=== PATIENT | female | born 2000 | race Caucasian/White ===

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

== ENCOUNTER 2020-01-10 05:55 | Inpatient (IN) | payer BC, SELFPAY ==
[2020-01-10] VITALS (25 sets, daily range): BP systolic 96–152; BP diastolic 56–88; PULSE 102–132; RESP 8–29; TEMP 36.1–38; O2SAT 98–100; BMI 19.8
[2020-01-10 05:44] LABS: Anion Gap 24 (5-15); BUN 16 mg/dL (7-18); BUN/Creat Ratio 16.3 RATIO (10-20); Calcium,Total 8.3 mg/dL (8.5-10.1); Chloride 112 mmol/L (98-107); Creatinine, Serum 0.98 mg/dL (0.55-1.02); EST Glomerular Filtration Rate 76 mL/min (>60); Est Glom Filt Rate - Afr Amer 92 mL/min (>60); Estimated Creatinine Clearance 77.55 ml/min; Glucose 425 mg/dL (74-106); Potassium 3.9 mmol/L (3.5-5.1); Sodium Level 140 mmol/L (136-145)
--- NOTE | 2020-01-10 05:47 | PCM.HP.STD ---
Problem List (1) DKA, type 1 Status: Acute Qualifiers: (2) DM type 1 (diabetes mellitus, type 1) Status: Chronic Qualifiers: History of Present Illness Date of Admission: 01/10/20 Chief Complaint: Hyperglycemia The patient is a 19 year old female patient with a past medical history of type 1 diabetes presents to the emergency room at [facility] with tachycardia, shortness of breath and hyperglycemia. Onset of this began over 1 day ago and is progressively become worse with shortness of breath. There she was found to have a pH of less than 7 with a blood sugar in the 600s with an anion gap of 34 along with ketones positive. [facility] did not have any beds in the ICU available so she was transferred by request [facility]. Upon arrival the patient had received over 2 L of IV fluids, and had begun an insulin drip and her sugar was in the 400s upon arrival with an anion gap of 24. Patient states she is starting to feel better than she did upon initial presentation at the [facility]. She no longer has nausea but does complain of some abdominal pain in the right lower quadrant with deep inspiration making that worse. There was reported as questionable urinary tract infection by ER at [address] and those labs and studies will be repeated here prior to initiating any therapy. The patient will continue the pathway for treatment of DKA here in the intensive care unit. Past Medical History Past Medical History (Chronic Problems): Chronic Problems (Last Reviewed 07/02/17 @ 16:28 by Mayela Swenson) DM type 1 (diabetes mellitus, type 1) (Chronic) Medical History: Medical History (Last Reviewed 07/02/17 @ 16:28 by Mayela Swenson) Diabetes type 1, controlled E10.9 Headache R51 Allergies No Known Allergies Allergy (Verified 11/27/17 22:33) Home Medications: Ambulatory Orders Medication Instructions Recorded Insulin Glargine [Lantus (BKC)] 50 units SC QHS 11/27/17 Insulin Lispro [Humalog KwikPen] 1 - 7 unit SQ LUNCH 11/27/17 Insulin Lispro [Humalog KwikPen] 1 - 9 unit SQ BREAKFAST 11/27/17 Sertraline HCl [Zoloft] 100 mg PO QHS 01/10/20 Surgical History: no surgical history Psychiatric History: No pertinent psych hx 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 Denies: Chills, Fever, Weight Change HEENT: Denies: Head Aches, Sinus Congestion, Sinus Drainage Cardiovascular: Denies: Chest Pain, Palpitations Respiratory: Reports: Shortness of breath at rest. Denies: Cough, Sputum production Gastrointestinal: Reports: Abdominal Pain. Denies: Nausea, Vomiting Genitourinary: Denies: Dysuria Musculoskeletal: Denies: Joint Pain, Joint Tenderness Skin: Denies: Rash, Wounds Neurological: Denies: Numbness, Tingling, Focal weakness Psychiatric: Denies: Anxiety, Depression, Homicidal Ideations, Suicidal Ideations Hematologic/ Lymphatic: Denies: Easy Bruising, Easy Bleeding VTE Information - Inpt Only VTE Present on Admission: No VTE Mechan Device Prophylaxis: None VTE Pharm Prophylaxis ordered?: Yes - Physical Exam Vitals/I&O's: Vital Signs Temp Pulse Resp BP Pulse Ox 96.9 F L 125 H 29 H 130/88 H 99 01/10/20 05:15 01/10/20 05:45 01/10/20 05:45 01/10/20 05:45 01/10/20 05:45 Oxygen Delivery Method Room Air Weight: 119 lb 4.321 oz Body Mass Index (BMI) 19.8 Finger Stick Blood Glucose 249 General: Alert, Oriented x3, Cooperative HEENT: Atraumatic, Normocephalic Neck: Supple Lungs: Clear to auscultation, Normal air movement Cardiovascular: Regular rate, Normal S1, Normal S2, No murmurs, Tachycardic Abdomen: Bowel Sounds Present, Soft, Tender - generalized Extremities: No edema Skin: No rashes Musculoskeletal: No Tenderness to Palpation of Joints or Extremities Neurological: Neuro grossly intact Psych/Mental Status: Normal Affect, Appropriate Laboratory Results 01/10/20 05:15: Sodium 140, Potassium 3.9, Chloride 112 H, Carbon Dioxide 4.0 L*, Anion Gap 24 H, BUN 16, Creatinine 0.98, Estim Creat Clear Calc 77.55, Est GFR (MDRD) Af Amer 92, Est GFR (MDRD) Non-Af 76, BUN/Creatinine Ratio 16.3, Glucose 425 H, Calcium 8.3 L Current Medications Sodium Chloride () 250 mls @ 15 mls/hr IV .[id number] PRN PRN Reason: Saline Flush Sodium Chloride () 250 mls @ 15 mls/hr IV .[id number] PRN PRN Reason: Additional IVPB Infusion Sodium Chloride () 10 - 40 ml IV UD PRN PRN Reason: SALINE FLUSH Assessment/Plan All Active Problems (Last Reviewed 07/02/17 @ 16:28 by Mayela Swenson) DKA, type 1 (Acute) Chronic Problems (Last Reviewed 07/02/17 @ 16:28 by Mayela Swenson) DM type 1 (diabetes mellitus, type 1) (Chronic) Plan 1. Diabetic ketoacidosis?admit patient to intensive care unit, consult aboriginal ceremonial celebrant, initiate DKA protocol. BMP was done upon arrival to our facility. Patient is in stable but serious condition upon arrival. We will also look for causes of DKA including repeating her urinalysis 2. DVT prophylaxis?low molecular weight heparin Inpatient E&M: 22455 Init Hosp L3
[2020-01-10 05:51] LABS: Bedside Glucose 407 mg/dL (70-110)
--- NOTE | 2020-01-10 05:59 | EKG12_ITS ---
Test Reason : DKA Blood Pressure : / mmHG Vent. Rate : 123 BPM Atrial Rate : 123 BPM P-R Int : 152 ms QRS Dur : 072 ms QT Int : 330 ms P-R-T Axes : 076 096 055 degrees QTc Int : 472 ms Sinus tachycardia Right atrial enlargement Septal infarct , age undetermined Abnormal ECG When compared with ECG of 06-JUN-2017 12:46, Septal infarct is now Present Non-specific change in ST segment in Anterior leads Nonspecific T wave abnormality no longer evident in Lateral leads Confirmed by MICHI MARTEL, ARANZA ([id number]), video tape editor MINE COBOS ([id number]) on 01/13/2020 9:11:10 AM Referred By: TD Confirmed By:YING BORDEN MD
[2020-01-10] MEDS: 0.9% Normal Saline 1,000 ML 250 ML IV (06:16)
[2020-01-10 06:45] LABS: Bedside Glucose 452 mg/dL (70-110)
--- NOTE | 2020-01-10 07:03 | PCM.CON.CC ---
Reason for Consult Date of Consultation: 01/10/20 Reason for Consultation: Diabetic ketoacidosis History of Present Illness: The patient is a 19-year-old female, with a history as outlined below, who presented to the medical intensive care unit as a transfer from an outside hospital due to the presence of diabetic ketoacidosis. The patient has a longstanding history of type 1 diabetes under poor control. The patient reports that she was previously being followed by an database tester in [place]. However, she states that she is now in need of finding a new specialist who is more local. At one point in time, the patient was utilizing a continuous insulin infusion pump. However, due to recent insurance changes, the patient was no longer able to afford her pump and had to be transition back to basal and sliding scale coverage. On presentation to the ICU, the patient was noted to be afebrile but was tachycardic and tachypneic. Laboratory evaluation revealed a chloride of 112, serum bicarbonate of 4.0 and anion gap of 24. Glucose was elevated to 425. Hemoglobin A1c was noted to be 13.2. Moderate serum acetone level was noted. The patient was continued on supplemental IV fluid hydration and a continuous insulin infusion. Past Medical History Past Medical History (Chronic Problems): Chronic Problems (Last Reviewed 07/02/17 @ 16:28 by Mayela Swenson) DM type 1 (diabetes mellitus, type 1) (Chronic) Medical History: Medical History (Last Reviewed 07/02/17 @ 16:28 by Mayela Swenson) Diabetes type 1, controlled E10.9 Headache R51 Allergies No Known Allergies Allergy (Verified 11/27/17 22:33) Home Medications: Ambulatory Orders Medication Instructions Recorded Insulin Glargine [Lantus (BKC)] 50 units SC QHS 11/27/17 Insulin Lispro [Humalog KwikPen] 1 - 7 unit SQ LUNCH 11/27/17 Insulin Lispro [Humalog KwikPen] 1 - 9 unit SQ BREAKFAST 11/27/17 Insulin Lispro [Insulin Lispro 1 - 6 unit SQ DINNER 01/10/20 Kwikpen U-100] Sertraline HCl [Zoloft] 100 mg PO QHS 01/10/20 Surgical History: no surgical history Psychiatric History: No pertinent psych hx 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 Denies: Chills, Fever Eyes: Denies: Blurred vision, Double vision HEENT: Denies: Head Aches, Sinus Congestion, Sinus Drainage Cardiovascular: Denies: Chest Pain, Palpitations Respiratory: Denies: Cough, Shortness of breath at rest, Sputum production Gastrointestinal: Reports: Abdominal Pain, Diarrhea. Denies: Nausea, Vomiting Genitourinary: Denies: Dysuria Musculoskeletal: Denies: Joint Pain, Joint Tenderness Skin: Denies: Rash, Wounds Neurological: Denies: Numbness, Tingling, Focal weakness Psychiatric: Denies: Anxiety, Depression, Homicidal Ideations, Suicidal Ideations Hematologic/ Lymphatic: Denies: Easy Bruising, Easy Bleeding Objective: The patient's most recent lab work, culture data and imaging studies have all been personally reviewed. Urine culture is currently pending. - Physical Exam Vitals/I&O's: Vital Signs Temp Pulse Resp BP Pulse Ox 96.9 F L 126 H 23 H 152/85 H 100 01/10/20 05:15 01/10/20 06:30 01/10/20 06:30 01/10/20 06:30 01/10/20 06:30 Oxygen Delivery Method Room Air Weight: 119 lb 4.321 oz Body Mass Index (BMI) 19.8 Finger Stick Blood Glucose 249 Intake and Output for Last 24 Hours 01/08/20 01/09/20 01/10/20 23:59 23:59 23:59 Output Total 400 / 400 Balance -400 / -400 General: Alert, Oriented x3, Cooperative, No apparent distress HEENT: Atraumatic, PERRLA, Normocephalic Oral: No Gingival or Mucosal Lesions/ Ulcerations Neck: Supple, No Nodes, Trachea Midline Lungs: Normal air movement, No rhonchi, No wheeze, No rales Cardiovascular: Normal S1, Normal S2, No murmurs, Tachycardic Abdomen: Bowel Sounds Present, Soft, Non Tender Extremities: No clubbing, No cyanosis, No edema Skin: No breakdown Musculoskeletal: No Tenderness to Palpation of Joints or Extremities, No Muscle Wasting Lymphatic: No Cervical, Supraclavicular, or Inguinal Adenopathy Neurological: Cranial nerves II-XII grossly intact, Neuro grossly intact Psych/Mental Status: Alert and oriented to time, place, person, mood and affect Labs (Last 48 Hours) 01/10/20 01/10/20 01/10/20 05:15 05:15 05:37 Sodium 140 Potassium 3.9 Chloride 112 H Carbon Dioxide 4.0 L* Anion Gap 24 H BUN 16 Creatinine 0.98 Estim Creat Clear Calc 77.55 Est GFR (MDRD) Af Amer 92 Est GFR (MDRD) Non-Af 76 BUN/Creatinine Ratio 16.3 Glucose 425 H Hemoglobin A1c Serum Osmolality Calcium 8.3 L Magnesium 2.0 Acetone Level POC Glucose 407 H 01/10/20 01/10/20 01/10/20 06:15 06:15 06:36 Sodium Potassium Chloride Carbon Dioxide Anion Gap BUN Creatinine Estim Creat Clear Calc Est GFR (MDRD) Af Amer Est GFR (MDRD) Non-Af BUN/Creatinine Ratio Glucose Hemoglobin A1c Pending Serum Osmolality Pending Calcium Magnesium Acetone Level Pending POC Glucose 452 H* Current Medications Dextrose (D50w Syringe) 0 gm IV X1 PRN; Protocol PRN Reason: HYPOGLYCEMIA Dextrose (D50w Syringe) 0 gm IV X1 PRN; Protocol PRN Reason: Hypoglycemia Enoxaparin Sodium (Lovenox) 40 mg SC DAILY BRITNI Glucagon () 1 mg IM .X1 PRN PRN Reason: Hypoglycemia Sodium Chloride () 250 mls @ 15 mls/hr IV .[id number] PRN PRN Reason: Saline Flush Sodium Chloride () 250 mls @ 15 mls/hr IV .[id number] PRN PRN Reason: Additional IVPB Infusion Sodium Chloride () 1,000 mls @ 150 mls/hr IV .[id number] BRITNI Sodium Chloride () 1,000 mls @ 250 mls/hr IV .Q4H [facility] Stop: 01/10/20 09:56 Last Admin: 01/10/20 06:16 Dose: 250 mls/hr Documented by: Sodium Chloride () 1,000 mls @ 175 mls/hr IV .[id number] [facility] Stop: 01/10/20 12:56 Insulin Human Lispro 100 unit/ (Sodium Chloride) 100 mls @ 5.41 mls/hr IV .[id number] [facility]; Protocol Last Admin: 01/10/20 06:38 Dose: 0.13 units/kg/hr, 7 mls/hr Documented by: Sodium Chloride () 10 - 40 ml IV UD PRN PRN Reason: SALINE FLUSH Assessment/Plan RECOMMENDATIONS: 1. Continue supplemental IV fluid hydration with lactated Ringer's. 2. Continue insulin infusion until anion gap has been closed x2. 3. Serial BMP monitoring with aggressive electrolyte repletion, as needed. 4. Patient to remain n.p.o. until anion gap has been closed. 5. Patient to establish care with Dr. Sin of endocrinology following discharge. IMPRESSIONS: 1. Diabetic ketoacidosis Most likely secondary to outpatient noncompliance, given significantly elevated hemoglobin A1c level. The patient is reportedly in need of a new database tester to manage her underlying diabetes mellitus longitudinally. For now, she will be continued on supplemental IV fluid hydration and continuous insulin infusion. Her fluids will be transition from normal saline to lactated Ringer's, given her rising chloride levels. Serial BMP levels will be monitored. Continuous insulin infusion will be utilized until anion gap has been closed x2. Patient to remain n.p.o. for now. Nutrition consultation has been placed for diabetic education. Case management/social work to assist with setting the patient up with Dr. Sin following discharge. This note was generated with [employer] dictation software. It may contain incorrect words, spelling, and punctuation that were not noted in checking the note before signing. Inpatient E&M: 42528 Init Hosp L3
[2020-01-10 07:38] LABS: Osmolality, Serum 329 mOsm/KG (275-295)
--- NOTE | 2020-01-10 07:43 | PCM.PN.BLA ---
Progress Note Patient is a 19-year-old lady with history of diabetes mellitus type 1 presenting with DKA. Admitted to the intensive care unit where patient is currently being managed per protocol with aggressive IV fluid resuscitation correction of electrolytes as well as administration of insulin with subsequent monitoring of electrolyte Lewis, her initial assessment including history and physical, diagnostic data as well as management orders reviewed will follow. STROKE Vital Signs/Narrative: Vital Signs Temp Pulse Resp BP BP Pulse Ox 01/10/20 06:30 126 H 23 H 152/85 H 100 01/10/20 06:00 121 H 26 H 120/65 100 01/10/20 05:45 125 H 29 H 130/88 H 99 01/10/20 05:30 128 H 24 H 126/83 H 99 01/10/20 05:15 96.9 F L 126 H 19 H 127/82 H 100 01/10/20 05:13 125 H
[2020-01-10 07:55] LABS: Bedside Glucose 385 mg/dL (70-110)
[2020-01-10 07:56] LABS: Color, Urine Yellow (Yellow); Glucose, Dipstick 1000 mg/dl (Normal); Leukocyte Esterase-Dipstick 25 /ul (Negative); Nitrite-Dipstick Negative (Negative); Occult Blood-Urine 250 /ul (Negative); Protein-Dipstick 30 mg/dl (Negative); Urine Bilirubin Dipstick Negative (Negative); Urine Clarity Sl. Cloudy (Clear); Urine Urobilinogen Normal (Normal)
[2020-01-10 07:58] LABS: Ketone-Dipstick 150 mg/dl (Negative)
[2020-01-10 08:00] LABS: Bacteria RARE /hpf (None Seen); Mucous, Urine RARE /hpf (<or=2+); Red Blood Cells-Urine 0-5 SEEN /hpf (0-5); Squamous Epithelial Cells - UA 0-5 SEEN /hpf (5-10); White Blood Cells 0-5 SEEN /hpf (0-5)
[2020-01-10 08:26] LABS: Hemoglobin A1c 13.2 % (3.8-5.6)
[2020-01-10 08:45] LABS: Bedside Glucose 410 mg/dL (70-110)
[2020-01-10] MEDS: Lactated Ringers 1,000 ML 999 ML IV (09:00)
[2020-01-10] MEDS: Enoxaparin 40 MG/0.4 ML Syringe SC (09:14)
[2020-01-10 09:43] LABS: Anion Gap 19 (5-15); BUN 15 mg/dL (7-18); BUN/Creat Ratio 20.1 RATIO (10-20); Calcium,Total 7.8 mg/dL (8.5-10.1); Chloride 121 mmol/L (98-107); Creatinine, Serum 0.75 mg/dL (0.55-1.02); EST Glomerular Filtration Rate 104 mL/min (>60); Est Glom Filt Rate - Afr Amer 126 mL/min (>60); Estimated Creatinine Clearance 101.34 ml/min; Glucose 386 mg/dL (74-106); Potassium 4.1 mmol/L (3.5-5.1); Sodium Level 145 mmol/L (136-145)
[2020-01-10 09:55] LABS: Bedside Glucose 324 mg/dL (70-110)
[2020-01-10] MEDS: Lactated Ringers 1,000 ML 250 ML IV (10:01)
[2020-01-10 11:00] LABS: Bedside Glucose 272 mg/dL (70-110)
--- NOTE | 2020-01-10 11:15 | CASEMGMT ---
TERRENCE AMATO Face to Face with patient for initial transition planning/care coordination assessment. TERRENCE AMATO introduced self and role at [facility]. Patient lying in bed, alert and oriented. Patient willing to participate in assessment and is able to answer all questions appropriately. Care providers, pharmacy, and demographics verified. Patient wishes to discharge home, denies need for home health at this time. Patient states she has no further needs or concerns at this time. CM to follow for discharge planning needs that may arise. PCP: [facility] Specialists: patient wanting to get established with Dr. Sin, senior marketing associate. TERRENCE AMATO called and made appt for 01/18/20 1500 [facility]erred [facility]acy: [facility] Insurance: [employer] Source Prescription Benefit: yes Living Will/HPOA: none LNOK: parents Living Arrangements: Patient lives with parents in a house. Patient is independent and able to ambulate stairs. Transportation: self/parents DME/HHC: Patient has glucometer, testing supplies, and insulin at home. Patient to get established with endocrinology. Disposition Plan: Patient to discharge home with family support and follow-up plans in place. Analilia SOTELO, RN, CM
[2020-01-10 12:06] LABS: Bedside Glucose 219 mg/dL (70-110)
[2020-01-10 13:10] LABS: Bedside Glucose 230 mg/dL (70-110)
[2020-01-10 13:42] LABS: Anion Gap 15 (5-15); BUN 12 mg/dL (7-18); BUN/Creat Ratio 16.6 RATIO (10-20); Chloride 120 mmol/L (98-107); Creatinine, Serum 0.72 mg/dL (0.55-1.02); EST Glomerular Filtration Rate 108 mL/min (>60); Est Glom Filt Rate - Afr Amer 131 mL/min (>60); Estimated Creatinine Clearance 105.56 ml/min; Glucose 269 mg/dL (74-106); Potassium 3.1 mmol/L (3.5-5.1); Sodium Level 144 mmol/L (136-145)
[2020-01-10 14:11] LABS: Bedside Glucose 207 mg/dL (70-110)
--- NOTE | 2020-01-10 14:20 | NURSING ---
report given to Criss OCAMPO. Criss OCAMPO assuming care of patient at 1934
[2020-01-10] MEDS: Potassium Chloride 10mEq/100mL 10 MEQ/100 ML IV.SOLN. 100 MEQ IV BOLUS ×4 (14:28→18:31)
[2020-01-10 15:16] LABS: Bedside Glucose 252 mg/dL (70-110)
[2020-01-10 16:15] LABS: Bedside Glucose 243 mg/dL (70-110)
[2020-01-10 17:16] LABS: Bedside Glucose 227 mg/dL (70-110)
[2020-01-10] MEDS: 0.9% Saline Lock 10 ML Syringe IV ×2 (17:19→19:37)
[2020-01-10 17:53] LABS: Anion Gap 10 (5-15); BUN 12 mg/dL (7-18); BUN/Creat Ratio 18.5 RATIO (10-20); Calcium,Total 7.7 mg/dL (8.5-10.1); Chloride 118 mmol/L (98-107); Creatinine, Serum 0.65 mg/dL (0.55-1.02); EST Glomerular Filtration Rate 122 mL/min (>60); Est Glom Filt Rate - Afr Amer 148 mL/min (>60); Estimated Creatinine Clearance 116.93 ml/min; Glucose 249 mg/dL (74-106); Potassium 3.5 mmol/L (3.5-5.1); Sodium Level 140 mmol/L (136-145)
[2020-01-10 18:16] LABS: Bedside Glucose 213 mg/dL (70-110)
[2020-01-10] MEDS: Ondansetron 4 MG/2 ML Vial IV (19:37)
[2020-01-10 22:00] LABS: Anion Gap 8 (5-15); BUN 14 mg/dL (7-18); Calcium,Total 8.1 mg/dL (8.5-10.1); Chloride 117 mmol/L (98-107); Creatinine, Serum 0.58 mg/dL (0.55-1.02); EST Glomerular Filtration Rate 139 mL/min (>60); Est Glom Filt Rate - Afr Amer 168 mL/min (>60); Estimated Creatinine Clearance 131.04 ml/min; Glucose 124 mg/dL (74-106); Potassium 3.7 mmol/L (3.5-5.1); Sodium Level 141 mmol/L (136-145)
[2020-01-10 23:05] LABS: Bedside Glucose 75 mg/dL (70-110)
[2020-01-11] VITALS (9 sets, daily range): BP systolic 96–122; BP diastolic 57–75; PULSE 94–108; RESP 14–19; TEMP 36.7–37.1; O2SAT 97–100
[2020-01-11 01:37] LABS: Anion Gap 9 (5-15); BUN 13 mg/dL (7-18); BUN/Creat Ratio 20.4 RATIO (10-20); Calcium,Total 8.1 mg/dL (8.5-10.1); Chloride 112 mmol/L (98-107); Creatinine, Serum 0.64 mg/dL (0.55-1.02); EST Glomerular Filtration Rate 125 mL/min (>60); Est Glom Filt Rate - Afr Amer 151 mL/min (>60); Estimated Creatinine Clearance 118.75 ml/min; Glucose 207 mg/dL (74-106); Potassium 2.9 mmol/L (3.5-5.1); Sodium Level 139 mmol/L (136-145)
[2020-01-11] MEDS: Potassium Chloride 10mEq/100mL 10 MEQ/100 ML IV.SOLN. 100 MEQ IV BOLUS ×8 (02:09→14:04)
[2020-01-11 06:08] LABS: Absolute Lymphocyte Count 1.23 X10^3/uL (0.83-4.51); Absolute Neutrophil Count 8.5 X10^3/uL (2.0-7.7); Basophil# 0.02 X10^3/uL; Basophil% 0.2 % (0-1); Eosinophil# 0.06 X10^3/uL; Eosinophils% 0.5 % (0-5); Hemoglobin 12.8 g/dL (12.0-15.0); Lymphocyte # 1.23 X10^3/ul (4.0); Lymphocyte % 11.2 % (19-41); Mean Corp Hgb Conc 33.7 g/dL (32-36); Mean Corpuscular Hgb 29.3 pg (27.0-32.0); Monocyte# 1.13 X10^3/uL; Monocyte% 10.3 % (0-10); NRBC Flagged by Analyzer 0 % (0-5); Neutrophil # 8.48 X10^3/uL (2.7-7.7); Neutrophil % 77.1 % (47-70); Platelet Count 216 K/mm3 (150-450); RBC Distribution Width CV 13.2 % (11.6-14.6); RBC Distribution Width SD 41.7 fl (35.1-43.9); Red Blood Count 4.37 M/mm3 (4.2-5.4)
[2020-01-11 06:22] LABS: Anion Gap 8 (5-15); BUN 12 mg/dL (7-18); Calcium,Total 8.1 mg/dL (8.5-10.1); Chloride 110 mmol/L (98-107); Creatinine, Serum 0.55 mg/dL (0.55-1.02); EST Glomerular Filtration Rate 149 mL/min (>60); Est Glom Filt Rate - Afr Amer 181 mL/min (>60); Estimated Creatinine Clearance 138.95 ml/min; Glucose 192 mg/dL (74-106); Magnesium 1.5 mg/dL (1.6-2.6); Phosphorus 1.2 mg/dL (2.5-4.9); Potassium 3.1 mmol/L (3.5-5.1); Sodium Level 137 mmol/L (136-145)
[2020-01-11] MEDS: Insulin Lispro 100 UNIT/ML INSULN.PEN SC ×7 (06:51→20:56)
[2020-01-11 07:05] LABS: Bedside Glucose 174 mg/dL (70-110)
--- NOTE | 2020-01-11 07:11 | PN_ITS ---
Subjective: The patient was seen and examined at the bedside this morning. Events from the last 24 hours have been reviewed. The patient is currently afebrile, hemodynamically stable and maintaining appropriate oxygen saturations on room air. The patient's anion gap remains closed. She was transitioned off of her continuous insulin infusion over to basal and sliding scale insulin yesterday. Potassium is low this morning at 3.1. Objective: The patient's most recent lab work, culture data and imaging studies have all been personally reviewed. General: Alert, Cooperative HEENT: Atraumatic, Normocephalic Oral: No Gingival or Mucosal Lesions/ Ulcerations Neck: Supple, No Nodes, Trachea Midline Lungs: Normal air movement, No rhonchi, No wheeze, No rales Cardiovascular: Regular rate, Regular Rhythm Abdomen: Bowel Sounds Present, Soft, Non Tender Extremities: No clubbing, No cyanosis, No edema Skin: No breakdown Musculoskeletal: No Tenderness to Palpation of Joints or Extremities, No Muscle Wasting Lymphatic: No Cervical, Supraclavicular, or Inguinal Adenopathy Neurological: Cranial nerves II-XII grossly intact, Neuro grossly intact Psych/Mental Status: Flat Affect Vital Signs Temp Pulse Resp BP Pulse Ox 98.4 F 106 H 19 H 122/75 H 99 01/11/20 01:00 01/11/20 04:00 01/11/20 04:00 01/11/20 04:00 01/11/20 04:00 Oxygen Delivery Method Room Air Weight: 119 lb 14.903 oz Body Mass Index (BMI) 19.8 Finger Stick Blood Glucose 213 Intake and Output for Last 24 Hours 01/09/20 01/10/20 01/11/20 23:59 23:59 23:59 Intake Total 4471.23 / 4471.23 822 / 822 Output Total 3300 / 3300 700 / 700 Balance 1171.23 / 1171.23 122 / 122 Labs (Last 48 Hours) 01/10/20 01/10/20 01/10/20 05:15 05:15 05:37 WBC RBC Hgb Hct MCV MCH MCHC RDW Std Deviation RDW Coeff of Santi Plt Count MPV Immature Gran % (Auto) Neut % (Auto) Lymph % (Auto) [place] % (Auto) Eos % (Auto) Baso % (Auto) Absolute Neuts (auto) Absolute Lymphs (auto) Nucleated RBC % Sodium 140 Potassium 3.9 Chloride 112 H Carbon Dioxide 4.0 L* Anion Gap 24 H BUN 16 Creatinine 0.98 Estim Creat Clear Calc 77.55 Est GFR (MDRD) Af Amer 92 Est GFR (MDRD) Non-Af 76 BUN/Creatinine Ratio 16.3 Glucose 425 H Hemoglobin A1c Serum Osmolality Calcium 8.3 L Phosphorus Magnesium 2.0 Urine Color Urine Clarity Urine pH Ur Specific [place] Urine Protein Urine Glucose (UA) Urine Ketones Urine Occult Blood Urine Nitrite Urine Bilirubin Urine Urobilinogen Ur Leukocyte Esterase Urine RBC Urine WBC Ur Squamous Epith Cells Urine Bacteria Urine Mucus Acetone Level POC Glucose 407 H 01/10/20 01/10/20 01/10/20 06:00 06:15 06:15 WBC RBC Hgb Hct MCV MCH MCHC RDW Std Deviation RDW Coeff of Santi Plt Count MPV Immature Gran % (Auto) Neut % (Auto) Lymph % (Auto) [place] % (Auto) Eos % (Auto) Baso % (Auto) Absolute Neuts (auto) Absolute Lymphs (auto) Nucleated RBC % Sodium Pending Potassium Pending Chloride Pending Carbon Dioxide Pending Anion Gap Pending BUN Pending Creatinine Pending Estim Creat Clear Calc Est GFR (MDRD) Af Amer Pending Est GFR (MDRD) Non-Af Pending BUN/Creatinine Ratio Pending Glucose Pending Hemoglobin A1c 13.2 H Serum Osmolality 329 H Calcium Pending Phosphorus Magnesium Urine Color Urine Clarity Urine pH Ur Specific [place] Urine Protein Urine Glucose (UA) Urine Ketones Urine Occult Blood Urine Nitrite Urine Bilirubin Urine Urobilinogen Ur Leukocyte Esterase Urine RBC Urine WBC Ur Squamous Epith Cells Urine Bacteria Urine Mucus Acetone Level MODERATE H POC Glucose 01/10/20 01/10/20 01/10/20 06:36 07:25 07:49 WBC RBC Hgb Hct MCV MCH MCHC RDW Std Deviation RDW Coeff of Santi Plt Count MPV Immature Gran % (Auto) Neut % (Auto) Lymph % (Auto) [place] % (Auto) Eos % (Auto) Baso % (Auto) Absolute Neuts (auto) Absolute Lymphs (auto) Nucleated RBC % Sodium Potassium Chloride Carbon Dioxide Anion Gap BUN Creatinine Estim Creat Clear Calc Est GFR (MDRD) Af Amer Est GFR (MDRD) Non-Af BUN/Creatinine Ratio Glucose Hemoglobin A1c Serum Osmolality Calcium Phosphorus Magnesium Urine Color Yellow Urine Clarity Sl. Cloudy Urine pH 5.0 Ur Specific [place] 1.020 Urine Protein 30 H Urine Glucose (UA) 1000 H Urine Ketones 150 H Urine Occult Blood 250 H Urine Nitrite Negative Urine Bilirubin Negative Urine Urobilinogen Normal Ur Leukocyte Esterase 25 H Urine RBC 0-5 SEEN Urine WBC 0-5 SEEN Ur Squamous Epith Cells 0-5 SEEN Urine Bacteria RARE Urine Mucus RARE Acetone Level POC Glucose 452 H* 385 H 01/10/20 01/10/20 01/10/20 08:39 09:05 09:51 WBC RBC Hgb Hct MCV MCH MCHC RDW Std Deviation RDW Coeff of Santi Plt Count MPV Immature Gran % (Auto) Neut % (Auto) Lymph % (Auto) [place] % (Auto) Eos % (Auto) Baso % (Auto) Absolute Neuts (auto) Absolute Lymphs (auto) Nucleated RBC % Sodium 145 Potassium 4.1 Chloride 121 H Carbon Dioxide 5.0 L* Anion Gap 19 H BUN 15 Creatinine 0.75 Estim Creat Clear Calc 101.34 Est GFR (MDRD) Af Amer 126 Est GFR (MDRD) Non-Af 104 BUN/Creatinine Ratio 20.1 H Glucose 386 H Hemoglobin A1c Serum Osmolality Calcium 7.8 L Phosphorus Magnesium Urine Color Urine Clarity Urine pH Ur Specific [place] Urine Protein Urine Glucose (UA) Urine Ketones Urine Occult Blood Urine Nitrite Urine Bilirubin Urine Urobilinogen Ur Leukocyte Esterase Urine RBC Urine WBC Ur Squamous Epith Cells Urine Bacteria Urine Mucus Acetone Level POC Glucose 410 H 324 H 01/10/20 01/10/20 01/10/20 10:55 11:59 12:59 WBC RBC Hgb Hct MCV MCH MCHC RDW Std Deviation RDW Coeff of Santi Plt Count MPV Immature Gran % (Auto) Neut % (Auto) Lymph % (Auto) [place] % (Auto) Eos % (Auto) Baso % (Auto) Absolute Neuts (auto) Absolute Lymphs (auto) Nucleated RBC % Sodium Potassium Chloride Carbon Dioxide Anion Gap BUN Creatinine Estim Creat Clear Calc Est GFR (MDRD) Af Amer Est GFR (MDRD) Non-Af BUN/Creatinine Ratio Glucose Hemoglobin A1c Serum Osmolality Calcium Phosphorus Magnesium Urine Color Urine Clarity Urine pH Ur Specific [place] Urine Protein Urine Glucose (UA) Urine Ketones Urine Occult Blood Urine Nitrite Urine Bilirubin Urine Urobilinogen Ur Leukocyte Esterase Urine RBC Urine WBC Ur Squamous Epith Cells Urine Bacteria Urine Mucus Acetone Level POC Glucose 272 H 219 H 230 H 01/10/20 01/10/20 01/10/20 13:00 14:03 15:08 WBC RBC Hgb Hct MCV MCH MCHC RDW Std Deviation RDW Coeff of Santi Plt Count MPV Immature Gran % (Auto) Neut % (Auto) Lymph % (Auto) [place] % (Auto) Eos % (Auto) Baso % (Auto) Absolute Neuts (auto) Absolute Lymphs (auto) Nucleated RBC % Sodium 144 Potassium 3.1 L Chloride 120 H Carbon Dioxide 9.0 L* Anion Gap 15 BUN 12 Creatinine 0.72 Estim Creat Clear Calc 105.56 Est GFR (MDRD) Af Amer 131 Est GFR (MDRD) Non-Af 108 BUN/Creatinine Ratio 16.6 Glucose 269 H Hemoglobin A1c Serum Osmolality Calcium 8.0 L Phosphorus Magnesium Urine Color Urine Clarity Urine pH Ur Specific [place] Urine Protein Urine Glucose (UA) Urine Ketones Urine Occult Blood Urine Nitrite Urine Bilirubin Urine Urobilinogen Ur Leukocyte Esterase Urine RBC Urine WBC Ur Squamous Epith Cells Urine Bacteria Urine Mucus Acetone Level POC Glucose 207 H 252 H 01/10/20 01/10/20 01/10/20 16:05 17:00 17:10 WBC RBC Hgb Hct MCV MCH MCHC RDW Std Deviation RDW Coeff of Santi Plt Count MPV Immature Gran % (Auto) Neut % (Auto) Lymph % (Auto) [place] % (Auto) Eos % (Auto) Baso % (Auto) Absolute Neuts (auto) Absolute Lymphs (auto) Nucleated RBC % Sodium 140 Potassium 3.5 Chloride 118 H Carbon Dioxide 12.0 L Anion Gap 10 BUN 12 Creatinine 0.65 Estim Creat Clear Calc 116.93 Est GFR (MDRD) Af Amer 148 Est GFR (MDRD) Non-Af 122 BUN/Creatinine Ratio 18.5 Glucose 249 H Hemoglobin A1c Serum Osmolality Calcium 7.7 L Phosphorus Magnesium Urine Color Urine Clarity Urine pH Ur Specific [place] Urine Protein Urine Glucose (UA) Urine Ketones Urine Occult Blood Urine Nitrite Urine Bilirubin Urine Urobilinogen Ur Leukocyte Esterase Urine RBC Urine WBC Ur Squamous Epith Cells Urine Bacteria Urine Mucus Acetone Level POC Glucose 243 H 227 H 01/10/20 01/10/20 01/10/20 18:09 21:00 23:00 WBC RBC Hgb Hct MCV MCH MCHC RDW Std Deviation RDW Coeff of Santi Plt Count MPV Immature Gran % (Auto) Neut % (Auto) Lymph % (Auto) [place] % (Auto) Eos % (Auto) Baso % (Auto) Absolute Neuts (auto) Absolute Lymphs (auto) Nucleated RBC % Sodium 141 Potassium 3.7 Chloride 117 H Carbon Dioxide 16.0 L Anion Gap 8 BUN 14 Creatinine 0.58 Estim Creat Clear Calc 131.04 Est GFR (MDRD) Af Amer 168 Est GFR (MDRD) Non-Af 139 BUN/Creatinine Ratio 24.0 H Glucose 124 H Hemoglobin A1c Serum Osmolality Calcium 8.1 L Phosphorus Magnesium Urine Color Urine Clarity Urine pH Ur Specific [place] Urine Protein Urine Glucose (UA) Urine Ketones Urine Occult Blood Urine Nitrite Urine Bilirubin Urine Urobilinogen Ur Leukocyte Esterase Urine RBC Urine WBC Ur Squamous Epith Cells Urine Bacteria Urine Mucus Acetone Level POC Glucose 213 H 75 01/11/20 01/11/20 01/11/20 01:15 06:00 06:00 WBC 11.0 RBC 4.37 Hgb 12.8 Hct 38.0 MCV 87.0 MCH 29.3 MCHC 33.7 RDW Std Deviation 41.7 RDW Coeff of Santi 13.2 Plt Count 216 MPV 9.0 Immature Gran % (Auto) 0.700 Neut % (Auto) 77.1 H Lymph % (Auto) 11.2 L [place] % (Auto) 10.3 H Eos % (Auto) 0.5 Baso % (Auto) 0.2 Absolute Neuts (auto) 8.5 H Absolute Lymphs (auto) 1.23 Nucleated RBC % 0 Sodium 139 137 Potassium 2.9 L 3.1 L Chloride 112 H 110 H Carbon Dioxide 18.0 L 19.0 L Anion Gap 9 8 BUN 13 12 Creatinine 0.64 0.55 Estim Creat Clear Calc 118.75 138.95 Est GFR (MDRD) Af Amer 151 181 Est GFR (MDRD) Non-Af 125 149 BUN/Creatinine Ratio 20.4 H 22.0 H Glucose 207 H 192 H Hemoglobin A1c Serum Osmolality Calcium 8.1 L 8.1 L Phosphorus 1.2 L Magnesium 1.5 L Urine Color Urine Clarity Urine pH Ur Specific [place] Urine Protein Urine Glucose (UA) Urine Ketones Urine Occult Blood Urine Nitrite Urine Bilirubin Urine Urobilinogen Ur Leukocyte Esterase Urine RBC Urine WBC Ur Squamous Epith Cells Urine Bacteria Urine Mucus Acetone Level POC Glucose 01/11/20 06:50 WBC RBC Hgb Hct MCV MCH MCHC RDW Std Deviation RDW Coeff of Santi Plt Count MPV Immature Gran % (Auto) Neut % (Auto) Lymph % (Auto) [place] % (Auto) Eos % (Auto) Baso % (Auto) Absolute Neuts (auto) Absolute Lymphs (auto) Nucleated RBC % Sodium Potassium Chloride Carbon Dioxide Anion Gap BUN Creatinine Estim Creat Clear Calc Est GFR (MDRD) Af Amer Est GFR (MDRD) Non-Af BUN/Creatinine Ratio Glucose Hemoglobin A1c Serum Osmolality Calcium Phosphorus Magnesium Urine Color Urine Clarity Urine pH Ur Specific [place] Urine Protein Urine Glucose (UA) Urine Ketones Urine Occult Blood Urine Nitrite Urine Bilirubin Urine Urobilinogen Ur Leukocyte Esterase Urine RBC Urine WBC Ur Squamous Epith Cells Urine Bacteria Urine Mucus Acetone Level POC Glucose 174 H Medical Necessity - Tobacco Use Smoking Status: Never smoker Assessment/Plan All Active Problems (Last Reviewed 07/02/17 @ 16:28 by Mayela Swenson) DKA, type 1 (Acute) RECOMMENDATIONS: 1. Continue basal and sliding scale insulin coverage. 2. Aggressive electrolyte repletion. 3. Encourage incentive spirometer use while in bed. 4. Patient to establish care with Dr. Sin of endocrinology following discharge. 5. Will sign off from a critical care perspective. IMPRESSIONS: 1. Diabetic ketoacidosis Resolved. Most likely secondary to outpatient noncompliance, given significantly elevated hemoglobin A1c level. The patient is reportedly in need of a new log grader to manage her underlying diabetes mellitus longitudinally. The patient's DKA resolved following IV fluid resuscitation and continuous insulin infusion. Agree with continuing basal insulin and sliding scale coverage. Diabetic education to be provided. The patient will need to be scheduled with Dr. Sin of endocrinology upon discharge from the hospital for follow-up. 2. Hypokalemia/hypophosphatemia/hypomagnesemia Aggressive electrolyte repletion as ordered. Recheck levels in the morning. This note was generated with [employer] dictation software. It may contain incorrect words, spelling, and punctuation that were not noted in checking the note before signing. Inpatient E&M: 07246 Subs Hosp L2
--- NOTE | 2020-01-11 07:17 | PN_ITS ---
Reason for Visit: DKA Subjective: Patient is a 19-year-old lady with history of diabetes mellitus type 1 presenting with DKA. Admitted to the intensive care unit where patient is currently being managed per protocol with aggressive IV fluid resuscitation correction of electrolytes as well as administration of insulin with subsequent monitoring of electrolyte Objective: GENERAL: cooperative HEENT: Atraumatic; EYES; Anicteric, Normal Conjunctiva NECK; supple, normal thyroid, RESPIRATORY: Diminished to auscultation CARDIOVASCULAR: Regular S1 S2, GI: soft, normoactive bowel sounds, : No Renal angle tenderness; EXTREMITIES: No edema, no clubbing, MUSCULOSKELETAL: no muscle waisting NEURO: Awake; no lateralizing signs. SKIN: No Rash PSYCH; Flat affect Vitals/I&O's: Vital Signs Temp Pulse Resp BP Pulse Ox 98.4 F 106 H 19 H 122/75 H 99 01/11/20 01:00 01/11/20 04:00 01/11/20 04:00 01/11/20 04:00 01/11/20 04:00 Oxygen Delivery Method Room Air Weight: 54.4 kg Body Mass Index (BMI) 19.8 Finger Stick Blood Glucose 213 Intake and Output for Last 24 Hours 01/09/20 01/10/20 01/11/20 23:59 23:59 23:59 Intake Total 4471.23 / 4471.23 822 / 822 Output Total 3300 / 3300 700 / 700 Balance 1171.23 / 1171.23 122 / 122 Laboratory Results 01/10/20 06:00: Sodium Pending, Potassium Pending, Chloride Pending, Carbon Dioxide Pending, Anion Gap Pending, BUN Pending, Creatinine Pending, Est GFR (MDRD) Af Amer Pending, Est GFR (MDRD) Non-Af Pending, BUN/Creatinine Ratio Pending, Glucose Pending, Calcium Pending 01/10/20 06:15: Hemoglobin A1c 13.2 H 01/10/20 06:15: Serum Osmolality 329 H 01/10/20 07:25: Urine Color Yellow, Urine Clarity Sl. Cloudy, Urine pH 5.0, Ur Specific [place] 1.020, Urine Protein 30 H, Urine Glucose (UA) 1000 H, Urine Ketones 150 H, Urine Occult Blood 250 H, Urine Nitrite Negative, Urine Bilirubin Negative, Urine Urobilinogen Normal, Ur Leukocyte Esterase 25 H, Urine RBC 0-5 SEEN, Urine WBC 0-5 SEEN, Ur Squamous Epith Cells 0-5 SEEN, Urine Bacteria RARE, Urine Mucus RARE 01/10/20 07:49: POC Glucose 385 H 01/10/20 08:39: POC Glucose 410 H 01/10/20 09:05: Sodium 145, Potassium 4.1, Chloride 121 H, Carbon Dioxide 5.0 L* , Anion Gap 19 H, BUN 15, Creatinine 0.75, Estim Creat Clear Calc 101.34, Est GFR (MDRD) Af Amer 126, Est GFR (MDRD) Non-Af 104, BUN/Creatinine Ratio 20.1 H, Glucose 386 H, Calcium 7.8 L 01/10/20 09:51: POC Glucose 324 H 01/10/20 10:55: POC Glucose 272 H 01/10/20 11:59: POC Glucose 219 H 01/10/20 12:59: POC Glucose 230 H 01/10/20 13:00: Sodium 144, Potassium 3.1 L, Chloride 120 H, Carbon Dioxide 9.0 L*, Anion Gap 15, BUN 12, Creatinine 0.72, Estim Creat Clear Calc 105.56, Est GFR (MDRD) Af Amer 131, Est GFR (MDRD) Non-Af 108, BUN/Creatinine Ratio 16.6, Glucose 269 H, Calcium 8.0 L 01/10/20 14:03: POC Glucose 207 H 01/10/20 15:08: POC Glucose 252 H 01/10/20 16:05: POC Glucose 243 H 01/10/20 17:00: Sodium 140, Potassium 3.5, Chloride 118 H, Carbon Dioxide 12.0 L , Anion Gap 10, BUN 12, Creatinine 0.65, Estim Creat Clear Calc 116.93, Est GFR (MDRD) Af Amer 148, Est GFR (MDRD) Non-Af 122, BUN/Creatinine Ratio 18.5, G lucose 249 H, Calcium 7.7 L 01/10/20 17:10: POC Glucose 227 H 01/10/20 18:09: POC Glucose 213 H 01/10/20 21:00: Sodium 141, Potassium 3.7, Chloride 117 H, Carbon Dioxide 16.0 L , Anion Gap 8, BUN 14, Creatinine 0.58, Estim Creat Clear Calc 131.04, Est GFR (MDRD) Af Amer 168, Est GFR (MDRD) Non-Af 139, BUN/Creatinine Ratio 24.0 H, Glucose 124 H, Calcium 8.1 L 01/10/20 23:00: POC Glucose 75 01/11/20 01:15: Sodium 139, Potassium 2.9 L, Chloride 112 H, Carbon Dioxide 18.0 L, Anion Gap 9, BUN 13, Creatinine 0.64, Estim Creat Clear Calc 118.75, Est GFR (MDRD) Af Amer 151, Est GFR (MDRD) Non-Af 125, BUN/Creatinine Ratio 20.4 H, Glucose 207 H, Calcium 8.1 L 01/11/20 06:00: WBC 11.0, RBC 4.37, Hgb 12.8, Hct 38.0, MCV 87.0, MCH 29.3, MCHC 33.7, RDW Std Deviation 41.7, RDW Coeff of Santi 13.2, Plt Count 216, MPV 9.0, Immature Gran % (Auto) 0.700, Neut % (Auto) 77.1 H, Lymph % (Auto) 11.2 L, [place] % (Auto) 10.3 H, Eos % (Auto) 0.5, Baso % (Auto) 0.2, Absolute Neuts (auto) 8.5 H, Absolute Lymphs (auto) 1.23, Nucleated RBC % 0 01/11/20 06:00: Sodium 137, Potassium 3.1 L, Chloride 110 H, Carbon Dioxide 19.0 L, Anion Gap 8, BUN 12, Creatinine 0.55, Estim Creat Clear Calc 138.95, Est GFR (MDRD) Af Amer 181, Est GFR (MDRD) Non-Af 149, BUN/Creatinine Ratio 22.0 H, Glucose 192 H, Calcium 8.1 L, Phosphorus 1.2 L, Magnesium 1.5 L 01/11/20 06:50: POC Glucose 174 H Current Medications Dextrose (D50w Syringe) 0 gm IV X1 PRN; Protocol PRN Reason: HYPOGLYCEMIA Dextrose (D50w Syringe) 0 gm IV X1 PRN; Protocol PRN Reason: Hypoglycemia Enoxaparin Sodium (Lovenox) 40 mg SC DAILY BRITNI Last Admin: 01/10/20 09:14 Dose: 40 mg Documented by: Glucagon () 1 mg IM .X1 PRN PRN Reason: Hypoglycemia Sodium Chloride () 250 mls @ 15 mls/hr IV .[id number] PRN PRN Reason: Saline Flush Last Admin: 01/11/20 02:10 Dose: 30 mls/hr Documented by: Sodium Chloride () 250 mls @ 15 mls/hr IV .[id number] PRN PRN Reason: Additional IVPB Infusion Potassium Chloride () 10 meq in 100 mls @ 100 mls/hr IV BOLUS Q1H [facility] Stop: 01/11/20 11:29 Magnesium Sulfate 2 gm/ Sodium (Chloride) 104 mls @ 52 mls/hr IV X1 ONE Stop: 01/11/20 09:15 Insulin Glargine (Lantus ([facility])) 25 units SC X1 ONE Stop: 01/11/20 08:01 Insulin Human Lispro (Humalog Kwikpen ([facility])) 5 unit SC TIDAC BRITNI Last Admin: 01/11/20 06:51 Dose: 5 units Documented by: Insulin Human Lispro (Humalog Kwikpen ([facility])) 0 unit SC TIDAC [facility]; Protocol Last Admin: 01/11/20 06:52 Dose: 2 units Documented by: Magnesium Oxide (Mag-Ox 400) 400 mg PO DAILYCM [facility] Nutritional Formula (Lactose Free) (Glucerna Shake) 120 ml PO 4X/DAY [facility] Last Admin: 01/10/20 21:48 Dose: Not Given Documented by: Ondansetron HCl (Zofran) 4 mg IV Q6H PRN PRN PRN Reason: nausea,emesis Last Admin: 01/10/20 19:37 Dose: 4 mg Documented by: Potassium Chloride (K-Dur) 20 meq PO BIDCM [facility] Potassium Chloride (K-Dur) 40 meq PO X1 ONE Stop: 01/11/20 07:17 Promethazine HCl (Phenergan) 6.25 mg IV Q4H PRN PRN PRN Reason: NAUSEA/VOMITING Sodium Chloride () 10 - 40 ml IV UD PRN PRN Reason: SALINE FLUSH Last Admin: 01/10/20 19:37 Dose: 20 ml Documented by: STROKE Vital Signs/Narrative: Vital Signs Pulse Resp BP Pulse Ox 01/11/20 04:00 106 H 19 H 122/75 H 99 01/11/20 03:58 101 H Medical Necessity - Tobacco Use Smoking Status: Never smoker Assessment/Plan All Active Problems (Last Reviewed 07/02/17 @ 16:28 by Mayela Swenson) DKA, type 1 (Acute) Patient is a 19-year-old lady with history of diabetes mellitus type 1 presenting with DKA. Admitted to the intensive care unit where patient is c urrently being managed per protocol with aggressive IV fluid resuscitation correction of electrolytes as well as administration of insulin with subsequent monitoring of electrolyte 1. Diabetic ketoacidosis ?Patient was admitted to the intensive care unit managed with aggressive IV fluid resuscitation correction of electrolyte abnormalities as well as administration of insulin. Patient DKA did resolve was transferred from the ICU to regular nursing floor with plans to observe patient for 1 additional day prior to discharge 2. Hypokalemia ?Corrected per protocol 3. DVT prophylaxis -low risk did encourage early ambulation Inpatient E&M: [id number] Subs Hosp L2
[2020-01-11] MEDS: Ondansetron 4 MG/2 ML Vial IV (09:07)
[2020-01-11 09:36] LABS: Anion Gap 7 (5-15); BUN 11 mg/dL (7-18); BUN/Creat Ratio 20.9 RATIO (10-20); Calcium,Total 8.2 mg/dL (8.5-10.1); Chloride 111 mmol/L (98-107); Creatinine, Serum 0.53 mg/dL (0.55-1.02); EST Glomerular Filtration Rate 156 mL/min (>60); Est Glom Filt Rate - Afr Amer 188 mL/min (>60); Glucose 130 mg/dL (74-106); Potassium 2.7 mmol/L (3.5-5.1); Sodium Level 138 mmol/L (136-145)
[2020-01-11] MEDS: Magnesium Oxide 400 MG Tablet PO (09:50)
[2020-01-11] MEDS: Enoxaparin 40 MG/0.4 ML Syringe SC (09:58)
[2020-01-11 11:56] LABS: Bedside Glucose 242 mg/dL (70-110)
[2020-01-11 17:05] LABS: Bedside Glucose 224 mg/dL (70-110)
[2020-01-11] MEDS: Acetaminophen 325 MG Tablet 650 MG PO (17:42)
[2020-01-11] MEDS: Glucerna Shake 120 ML LIQUID PO (19:54)
[2020-01-11 20:16] LABS: Bedside Glucose 334 mg/dL (70-110)
[2020-01-12 02:11] VITALS: BP 107/68; PULSE 100; RESP 16; TEMP 36.6; O2SAT 100
[2020-01-12 06:43] LABS: Anion Gap 7 (5-15); BUN 5 mg/dL (7-18); BUN/Creat Ratio 11.5 RATIO (10-20); Calcium,Total 7.8 mg/dL (8.5-10.1); Chloride 105 mmol/L (98-107); Creatinine, Serum 0.43 mg/dL (0.55-1.02); EST Glomerular Filtration Rate 195 mL/min (>60); Est Glom Filt Rate - Afr Amer 236 mL/min (>60); Estimated Creatinine Clearance 177.73 ml/min; Glucose 395 mg/dL (74-106); Phosphorus 1.2 mg/dL (2.5-4.9); Potassium 3.6 mmol/L (3.5-5.1); Sodium Level 137 mmol/L (136-145)
[2020-01-12 08:10] VITALS: BP 102/70; PULSE 90; RESP 16; TEMP 36.5; O2SAT 100
[2020-01-12] MEDS: 0.9% Saline Lock 10 ML Syringe IV (08:14)
[2020-01-12] MEDS: Ondansetron 4 MG/2 ML Vial IV (08:14)
[2020-01-12] MEDS: Enoxaparin 40 MG/0.4 ML Syringe SC (08:20)
[2020-01-12] MEDS: Insulin Lispro 100 UNIT/ML INSULN.PEN SC ×4 (08:20→11:56)
[2020-01-12] MEDS: Magnesium Oxide 400 MG Tablet PO (08:21)
[2020-01-12 08:25] LABS: Bedside Glucose 401 mg/dL (70-110)
[2020-01-12] MEDS: Glucerna Shake 120 ML LIQUID PO (08:25)
--- NOTE | 2020-01-12 10:00 | PCM.DC ---
You will use the following diet at home:: Calorie/Carbohydrate Controlled (specify 1200, 1400, etc) - 1800 Your food should be the consistency of: Regular Discharge Activity: Return to Normal Activity Allergies/Adverse Reactions: Allergies No Known Allergies Allergy (Verified 11/27/17 22:33) Medications to take at Discharge Insulin Glargine [Lantus SoloStar Pen] 50 units SC QHS 11/27/17 Insulin Lispro [Humalog KwikPen] 1 - 7 unit SQ LUNCH 11/27/17 Insulin Lispro [Humalog KwikPen] 1 - 9 unit SQ BREAKFAST 11/27/17 Insulin Lispro [Insulin Lispro Kwikpen U-100] 1 - 6 unit SQ DINNER 01/10/20 Sertraline HCl [Zoloft] 100 mg PO QHS 01/10/20 Sodium,Potassium Phosphates [Phos-Nak Packet] 1 ea PO BID #60 powd.pack 01/12/20 The following prescriptions were given: Sodium,Potassium Phosphates [Phos-Nak Packet] 1 ea PO BID #60 powd.pack Transmission Status: Pending to [id number] Primary Care Physician: Maurilio Alcala MD [Primary Care Provider] - Please follow up with your Primary Care Physician in: 1 week Test Results: Test results from this visit will be discussed in further detail at your follow-up appointment, if applicable. Please Follow Up With: Jacob Sin MD When: Thursday Proposed Discharge Date: 01/12/20
--- NOTE | 2020-01-12 10:09 | DS.PCM_ITS ---
Discharge Date and Diagnosis Date of Admission: 01/10/20 Date of Discharge: 01/12/20 - Primary Discharge Diagnosis Acute Problems: Diabetic ketoacidosis Hypokalemia Hypophosphatemia - Secondary Discharge Diagnosis Chronic Problems: Chronic Problems (Last Reviewed 07/02/17 @ 16:28 by Mayela Swenson) DM type 1 (diabetes mellitus, type 1) (Chronic) Hospital Course and Treatment Operations: None Summary of Care Provided: Patient is a 19-year-old lady with history of diabetes mellitus type 1 presenting with DKA. Admitted to the intensive care unit where patient is curr ently being managed per protocol with aggressive IV fluid resuscitation correction of electrolytes as well as administration of insulin with subsequent monitoring of electrolyte 1. Diabetic ketoacidosis ?Patient was admitted to the intensive care unit managed with aggressive IV fluid resuscitation correction of electrolyte abnormalities as well as administration of insulin. Patient DKA did resolve was transferred from the ICU to regular nursing floor with plans to observe patient for 1 additional day prior to discharge 2. Hypokalemia ?Corrected per protocol 3. Hypophosphatemia ?Corrected per protocol prescription written on discharge 4. DVT prophylaxis -low risk did encourage early ambulation Objective: GENERAL: cooperative HEENT: Atraumatic; EYES; Anicteric, Normal Conjunctiva NECK; supple, normal thyroid, RESPIRATORY: Diminished to auscultation CARDIOVASCULAR: Regular S1 S2, GI: soft, normoactive bowel sounds, : No Renal angle tenderness; EXTREMITIES: No edema, no clubbing, MUSCULOSKELETAL: no muscle waisting NEURO: Awake; no lateralizing signs. SKIN: No Rash PSYCH; Flat affect - Physical Exam Vitals/I&O's: Vital Signs Temp Pulse Resp BP Pulse Ox 97.7 F L 90 16 102/70 100 01/12/20 08:10 01/12/20 08:10 01/12/20 08:10 01/12/20 08:10 01/12/20 08:10 Oxygen Delivery Method Room Air Weight: 54.2 kg Body Mass Index (BMI) 19.8 Finger Stick Blood Glucose 213 Intake and Output for Last 24 Hours 01/10/20 01/11/20 01/12/20 23:59 23:59 23:59 Intake Total 4471.23 / 4471.23 2626 / 2626 Output Total 3300 / 3300 700 / 700 Balance 1171.23 / 1171.23 1926 / 192 Microbiology Past 72 Hours 01/10/20 07:25 Urine, Clean Catch Urine Culture - Preliminary Mixed Gram Positive Organisms Yeast Like Organism Laboratory Results 01/11/20 11:47: POC Glucose 242 H 01/11/20 16:38: POC Glucose 224 H 01/11/20 19:54: POC Glucose 334 H 01/12/20 05:40: Sodium 137, Potassium 3.6, Chloride 105, Carbon Dioxide 25.0, Anion Gap 7, BUN 5 L, Creatinine 0.43 L, Estim Creat Clear Calc 177.73, Est GFR (MDRD) Af Amer 236, Est GFR (MDRD) Non-Af 195, BUN/Creatinine Ratio 11.5, Glucose 395 H, Calcium 7.8 L, Phosphorus 1.2 L, Magnesium 2.0 01/12/20 08:19: POC Glucose 401 H Current Medications Acetaminophen (Tylenol) 650 mg PO Q6H PRN PRN PRN Reason: Pain Score 1-10/10 Last Admin: 01/11/20 17:42 Dose: 650 mg Documented by: Dextrose (D50w Syringe) 0 gm IV X1 PRN; Protocol PRN Reason: Hypoglycemia Enoxaparin Sodium (Lovenox) 40 mg SC DAILY [facility] Last Admin: 01/12/20 08:20 Dose: 40 mg Documented by: Glucagon () 1 mg IM .X1 PRN PRN Reason: Hypoglycemia Sodium Chloride () 250 mls @ 15 mls/hr IV .[id number] PRN PRN Reason: Saline Flush Last Infusion: 01/11/20 15:24 Dose: Infused Documented by: Sodium Chloride () 250 mls @ 15 mls/hr IV .[id number] PRN PRN Reason: Additional IVPB Infusion Insulin Human Lispro (Humalog Kwikpen (Bkc)) 5 unit SC TIDAC [facility] Last Admin: 01/12/20 08:20 Dose: 5 units Documented by: Insulin Human Lispro (Humalog Kwikpen (Bkc)) 0 unit SC ACHS [facility]; Protocol Last Admin: 01/12/20 08:21 Dose: 10 units Documented by: Magnesium Oxide (Mag-Ox 400) 400 mg PO DAILYCM [facility] Last Admin: 01/12/20 08:21 Dose: 400 mg Documented by: Nutritional Formula (Lactose Free) (Glucerna Shake) 120 ml PO 4X/DAY [facility] Last Admin: 01/12/20 08:25 Dose: 120 ml Documented by: Ondansetron HCl (Zofran) 4 mg IV Q6H PRN PRN PRN Reason: nausea,emesis Last Admin: 01/12/20 08:14 Dose: 4 mg Documented by: Potassium Chloride (K-Dur) 20 meq PO BIDCM [facility] Last Admin: 01/12/20 08:21 Dose: 20 meq Documented by: Potassium Phos/Sodium Phos (Neutra-Phos Packet) 1 packet PO TID [facility] Promethazine HCl (Phenergan) 6.25 mg IV Q4H PRN PRN PRN Reason: NAUSEA/VOMITING Sodium Chloride () 10 - 40 ml IV UD PRN PRN Reason: SALINE FLUSH Last Admin: 01/12/20 08:14 Dose: 10 ml Documented by: Discharge Diet: 1800 Calorie Control Diet Discharge Activity: Return to Normal Activity Home Medications: Medications to take at Discharge Insulin Glargine [Lantus SoloStar Pen] 50 units SC QHS 11/27/17 Insulin Lispro [Humalog KwikPen] 1 - 7 unit SQ LUNCH 11/27/17 Insulin Lispro [Humalog KwikPen] 1 - 9 unit SQ BREAKFAST 11/27/17 Insulin Lispro [Insulin Lispro Kwikpen U-100] 1 - 6 unit SQ DINNER 01/10/20 Sertraline HCl [Zoloft] 100 mg PO QHS 01/10/20 Sodium,Potassium Phosphates [Phos-Nak Packet] 1 ea PO BID #60 powd.pack 01/12/20 Following Prescrptions Were Given to Patient: Sodium,Potassium Phosphates [Phos-Nak Packet] 1 ea PO BID #60 powd.pack Transmission Status: Pending to [facility] Primary Care Physician: Maurilio Alcala MD [Primary Care Provider] - Please follow up with your Primary Care Physician in: 1 week Please Follow Up With: Jacob Sin MD When: Thursday Disposition: Home Minutes spent on discharge:: 35 Patient Condition:: Stable Medical Necessity - Tobacco Use Smoking Status: Never smoker Meaningful Use Info Meaningful Use Diagnoses (Choose all that apply): None applicable Inpatient E&M: 09003 [facility]
[2020-01-12 11:16] VITALS: O2SAT 100
[2020-01-12 11:55] VITALS: BP 106/64; PULSE 108; RESP 16; TEMP 36.7; O2SAT 99
[2020-01-12 12:46] LABS: Bedside Glucose 449 mg/dL (70-110)
--- NOTE | 2020-01-12 15:06 | PHA.DC.MC ---
Pharmacy Service has performed discharge medication reconciliation and counseling for this patient. 1. SODIUM/POTASSIUM PHOSPHATE 1 PACKET PO BID The patient's discharge medication list was reviewed for discrepancies and discrepancies were resolved. Home Medications Insulin Glargine [Lantus SoloStar Pen] 50 units SC QHS 11/27/17 Insulin Lispro [Humalog KwikPen] 1 - 7 unit SQ LUNCH 11/27/17 Insulin Lispro [Humalog KwikPen] 1 - 9 unit SQ BREAKFAST 11/27/17 Insulin Lispro [Insulin Lispro Kwikpen U-100] 1 - 6 unit SQ DINNER 01/10/20 Sertraline HCl [Zoloft] 100 mg PO QHS 01/10/20 Sodium,Potassium Phosphates [Phos-Nak Packet] 1 ea PO BID #60 powd.pack 01/12/20 The patient was counseled on the following discharge medications and changes in medications for homegoing were reviewed. The Reason for Use, instructions for use, and potential side effects were reviewed for all new medications. The patient's questions regarding all of their medications were answered. The patient was able to verbally demonstrate an understanding of their discharge medications. Patient counseled by pharmacy tech, Al
== END 2020-01-12 12:55 | disposition home or self-care (01) | DRG 639 ==
LOC: ICU 01-11 04:56 → MS3 01-11 07:20
PROVIDERS: Family Medicine; Admitting Provider Family Medicine; PCP Family Medicine; Visit Provider Internal Medicine
DX: E10.10 Type 1 diabetes mellitus with ketoacidosis without coma (principal); Z91.19 Patient's noncompliance with other medical treatment and regimen; E87.6 Hypokalemia; E83.42 Hypomagnesemia; E83.39 Other disorders of phosphorus metabolism; Z79.4 Long term (current) use of insulin; Z79.899 Other long term (current) drug therapy
CPT/HCPCS: 36415; 80048; 81001; 82009; 82962; 83036; 83735; 83930; 84100; 85025; 87086; 87088; 93005; 97802; J7030; J7050; J7120; A4216; J2405

== ENCOUNTER → 2020-02-09 12:31 | Outpatient (CLI) | payer BC, SELFPAY ==
[2020-01-10 05:11] VITALS: BMI 19.8
--- NOTE | 2020-02-09 12:32 | US_ITS ---
STUDY: ULTRASOUND BREAST - LEFT REASON FOR EXAM: Female, 19 years old. Palpable lump left breast. TECHNIQUE: Axial and longitudinal images of the LEFT breast were performed with a high resolution ultrasound transducer. # OF IMAGES: 25 COMPARISON: None. FINDINGS: LEFT Breast: The upper inner quadrant of the breast was examined by ultrasound. There is heterogeneously fibroglandular tissue. No sonographic abnormality is seen. US/Breast Limited Unilateral IMPRESSION: No sonographic abnormality is seen. ASSESSMENT CATEGORY: BIRADS Category 1: Negative. A letter regarding these results will be sent to the patient by the facility within 30 days. Electronically Signed: Sony Cowart, at 13:03 EDT , Service support ,
== END ==
PROVIDERS: PCP Family Medicine; Referring Provider Internal Medicine Endocrinology, Diabetes & Metabolism; Visit Provider Internal Medicine Endocrinology, Diabetes & Metabolism
DX: N63.20 Unspecified lump in the left breast, unspecified quadrant (principal)
CPT/HCPCS: 76642

== ENCOUNTER 2020-11-16 02:09 | Observation (INO) | payer BC, SELFPAY ==
[2020-08-02 15:05] VITALS: BMI 22.1
[2020-11-16] VITALS (15 sets, daily range): BP systolic 102–125; BP diastolic 57–85; PULSE 92–116; RESP 13–18; TEMP 36.6–36.9; O2SAT 100; BMI 19.7
--- NOTE | 2020-11-16 06:04 | HP.PCM.HOS_ITS ---
HPI - General General Date of Admission: 11/16/20 Chief Complaint: Hyperglycemia, N/V, fatigue, malaise. HPI Narrative The patient is a 19 y/o F w/ PMHx: Diabetes mellitus type I, Anxiety and Depression who presents to the [facility] as direct admission from [facility] on 11/16/20 with history of significant increased fatigue, malaise, generalized muscle weakness, decreased urine output as well as nausea and emesis with no recent fevers or chills worsening over the last 24 hours with history of significant ice cream intake over the last 48 hours secondary to significant heat and lack of air conditioning in an effort to cool her self down per her report. She also notes that she did not take insulin in response to her hyperglycemia following intake of these sugar items. She notes she had been doing well prior to this. She does state however she did have loose stools 1 week prior but this is since resolved. Work-up in the outside facility included: VS: Initial T 36.7, HR 129, RR 20, 100% on RA, BP 105/76-->1 am VS HR 126, 16 RR 100% on RA 107/56. LA: 1.6 CBC: WBC 10.9, Hgb 15.9, Plts 302 without shift CMP: Na 132, K 3.5, Bicarb 14, AG 25, BUN/Cr 16/0.72 Ma.43 UA: 2+ ketones, 3+ glucose, poor sample COVID negative Medications: 1L NS, insulin drip-->requested additional 1L NS be administered. Upon presentation to [facility] she noted feeling improved, but reports having nausea prior to transition to [facility]. She was given food at the outside facility ED while on insulin. [facility] Medical History (Updated 11/16/20 @ 06:[address] Nikole Watts MD) Anxiety and depression Diabetes type 1, controlled Headache Home Medications sertraline 100 mg PO QHS 01/10/20 [History Last Taken 01/08/20] potassium, sodium phosphates 1 ea PO BID #60 powd.pack 01/12/20 [Rx Last Taken Unknown] cholecalciferol (vitamin D3) 1,250 mcg (50,000 unit) capsule 1,250 mcg PO QWEEK #4 cap 01/18/20 [Rx Last Taken Unknown] amoxicillin 875 mg-potassium clavulanate 125 mg tablet 1 tab PO BID #14 tab 01/26/20 [Rx Last Taken Unknown] Accu-Chek Guide test strips #150 ea NS 08/02/20 [Rx Last Taken Unknown] FreeStyle Randell 14 Day Sensor #2 ea NS 08/02/20 [Rx Last Taken Unknown] insulin glargine 100 unit/mL (3 mL) subcutaneous pen 40 unit SUBCUT QHS #15 ml 08/02/20 [Rx Last Taken Unknown] insulin lispro 100 unit/mL subcutaneous pen 20 unit SC TID #18 ml 08/02/20 [Rx Last Taken Unknown] Allergy/AdvReac Type Severity Reaction Status Date / Time No Known Allergies Allergy Verified 08/02/20 15:13 Family History (Updated 11/16/20 @ 06:[address] Nikole Watts MD) Father Diabetes Heart disease PAF Mother Migraines Surgical History (Updated 11/16/20 @ 06:[address] Nikole Watts MD) H/O wisdom tooth extraction Social History (Updated 11/16/20 @ 06:[address] Nikole Watts MD) household members: family do you think of yourself as: lesbian/mckeon/homosexual Smoking Status: Never smoker second hand exposure: No alcohol intake: never substance use type: does not use ROS ROS Narrative Admission Review of Systems: CONSTITUTIONAL: No weight loss, fever, chills, + weakness or fatigue. HEENT: Eyes: No visual loss, blurred vision, double vision or yellow sclerae. Ears, Nose, Throat: No hearing loss, sneezing, congestion, runny nose or sore throat. SKIN: No rash or itching, lesions, wounds. CARDIOVASCULAR: No chest pain, chest pressure or chest discomfort, palpitations, edema, orthopnea, syncopal events. RESPIRATORY: No shortness of breath, cough or sputum, wheezing, hemoptysis. GASTROINTESTINAL: + anorexia, nausea, vomiting, No diarrhea, abdominal pain, melena, BRBPR. GENITOURINARY: No dysuria, frequency, urgency or retention. NEUROLOGICAL: + headache, No dizziness, syncope, paralysis, ataxia, numbness or tingling in the extremities, focal weakness, change in bowel or bladder control, seizure. MUSCULOSKELETAL: + muscle, back pain, joint pain or stiffness. HEMATOLOGIC: No anemia, bleeding or bruising. LYMPHATICS: No enlarged nodes. No history of splenectomy. PSYCHIATRIC: No history of depression or anxiety. ENDOCRINOLOGIC: + Hyperglycemia. No polyuria or polydipsia, actually reported decreased UOP. No reports of sweating, cold or heat intolerance. ALLERGIES: No history of asthma, hives, eczema or rhinitis. Physical Exam Narrative Physical Examination: General: awake, alert, oriented x 3 and cooperative, seated upright in the ICU bed in no apparent distress, notes feeling improved since initial presentation outside ED. Skin: normal color, turgor, no icterus, cyanosis. HEENT: AT/NC, EOMI, PERRLA, mildly dry MM, no carotid bruits or JVD noted. Lungs: CTA bilaterally, appropriate effort, no rales, ronchi or wheezing. Heart: Mildly tachycardic with regular rhythm; no gallop, rub audible. Abdomen: soft, thin habitus, NTTP, ND, mildly hyperactive BS, no HSM. Extremities: no cyanosis, clubbing, or edema. Neurological: patient awake, alert, oriented as noted, cognitive function intact; pupils equally reactive to light and accommodation, cranial nerves II- XII grossly normal, moving all 4 extremities, no focal deficits, strength improved, mild global decrease secondary to acute complaints. Psychiatric: affect appears fatigued otherwise normal, no acute evidence of depressive or anxiety feelings. Lab / Micro Data Result Diagrams: 11/16/20 06:15 11/16/20 06:15 Assessment & Plan Assessment/Plan (1) DKA, type 1: QUALIFIERS: Diabetes mellitus complication detail: without coma Qualified Code(s): E10.10 - Type 1 diabetes mellitus with ketoacidosis without coma PLAN: The patient is a 19 y/o F w/ PMHx: Diabetes mellitus type I, Anxiety and Depression who presents to the [facility] as direct admission from [facility] on 11/16/20 with history of significant increased fatigue, malaise, generalized m uscle weakness, decreased urine output as well as nausea and emesis with no recent fevers or chills worsening over the last 24 hours with history of significant ice cream intake over the last 48 hours. 1. DKA w/ Diabetes mellitus type I: Patient administered 2 L normal saline in the ED at outside facility and started on an insulin drip. Will admit to the ICU, continue on insulin drip, check serial K+, glucose w/ IVF changes pending these levels, serial chemistry, obtain mag, phos daily w/ repletion as needed, transition to home SC regimen when gap closed w/ overlap on drip, nutrition consultation for education and teaching especially given presentation secondary to significant poor diet choices and failure to self administer insulin therapy, Hemoglobin A1c requested. 2. Hypokalemia: Admission K+ 3.5, magnesium level 1.43 which will be supplemented, supplementation will be given per DKA protocol, repeat BMP serially as noted above. 3. Anxiety and depression: Patient reports that she took her self off sertraline approximately 2 months prior secondary to medication refill needs and felt as though it was not doing anything. Recommended follow-up with her primary care physician to review different options. 4. DVT prophylaxis: SCDs, Lovenox. Visit Charges OBSV E&M: 14141 Initial observation care L3
[2020-11-16 06:25] LABS: Absolute Lymphocyte Count 2.19 X10^3/uL (0.83-4.51); Absolute Neutrophil Count 6.5 X10^3/uL (2.0-7.7); Basophil# 0.04 X10^3/uL; Basophil% 0.4 % (0-1); Eosinophil# 0.06 X10^3/uL; Eosinophils% 0.6 % (0-5); Hematocrit 41.3 % (37-47); Lymphocyte # 2.19 X10^3/ul (0.83-4.51); Lymphocyte % 22.6 % (19-41); Mean Corp Hgb Conc 33.9 g/dL (32-36); Mean Corpuscular Hgb 29.8 pg (27.0-32.0); Mean Corpuscular Volume 87.9 fL (81-99); Monocyte# 0.82 X10^3/uL; Monocyte% 8.5 % (0-10); NRBC Flagged by Analyzer 0 % (0-5); Neutrophil # 6.52 X10^3/uL (2.7-7.7); Neutrophil % 67.2 % (47-70); Platelet Count 272 K/mm3 (150-450); RBC Distribution Width CV 12.3 % (11.6-14.6); RBC Distribution Width SD 39.5 fl (35.1-43.9); White Blood Count 9.7 K/mm3 (4.4-11.0)
[2020-11-16 06:38] LABS: Anion Gap 9 (5-15); BUN 11 mg/dL (7-18); BUN/Creat Ratio 17.1 RATIO (10-20); Calcium,Total 8.1 mg/dL (8.5-10.1); Chloride 105 mmol/L (98-107); Creatinine, Serum 0.64 mg/dL (0.55-1.02); EST Glomerular Filtration Rate 123 mL/min (>60); Est Glom Filt Rate - Afr Amer 148 mL/min (>60); Estimated Creatinine Clearance 121.47 ml/min; Glucose 286 mg/dL (74-106); Magnesium 1.3 mg/dL (1.6-2.6); Potassium 3.6 mmol/L (3.5-5.1); Sodium Level 135 mmol/L (136-145)
[2020-11-16] MEDS: 0.9% Normal Saline 1,000 ML 999 ML IV (06:45)
[2020-11-16] MEDS: Insulin Lispro 100 UNIT/ML INSULN.PEN SC ×3 (07:54→16:53)
[2020-11-16 08:11] LABS: Bedside Glucose 272 mg/dL (70-110)
[2020-11-16 08:11] LABS: Bedside Glucose 317 mg/dL (70-110)
[2020-11-16] MEDS: 0.9% Normal Saline 1,000 ML 125 ML IV ×3 (08:30→22:13)
[2020-11-16 08:36] LABS: Phosphorus 2.8 mg/dL (2.5-4.9)
--- NOTE | 2020-11-16 08:47 | PN.HOSP_ITS ---
Hospitalist Note 19-year-old female with type 1 diabetes mellitus diagnosed when she was 10 years old is directly admitted in ICU after transfer from [place] ER for management of DKA. Magnesium is low, hypomagnesemia. Mild hypokalemia Patient missed doses of insulin at night probably reason for DKA. Had vomited 2 times in [place]. Currently mild hypokalemia. IV fluid normal saline at 125 mill per hour. Monitor fluids electrolytes and replacement as per guidelines. Anion gap closed, currently on intermittent long-acting and prandial insulin subcutaneous regimen. Discussed with the nursing staff.
[2020-11-16 08:54] LABS: Hemoglobin A1c 13.3 % (3.8-5.6)
--- NOTE | 2020-11-16 10:57 | CASEMGMT ---
Social Work SW met with pt in room and introduced self and role of SW. Pt is 19 year old female presenting with type 1 diabetes. Diagnosis of depression and anxiety and H&P indicates pt stopped taking Zoloft about 2 months ago. Pt states she lives with her parents and her brother and works 40 hours a week at [employer]. Pt confirms that she stopped taking Zoloft as prescription ran out and she did not think it was very helpful. Pt also states she knows she needs to make an appointment with PCP to discuss mental health and possible restarting medication to help control anxiety and depression. Pt stating that she now is finding she feels lack of motivation and lack of interest in current hobbies. SW and pt discussed chronic illness and current mental health concerns. Support provided. SW provided pt with a list of counseling services in the area and discussed insurance coverage of counseling. Pt appreciative of information and willing to review list and consider setting up an appointment. Pt confirms she plans to contact PCP for appt at discharge and will talk to him about medications. Pt states her parents are supportive. SW will remain available should further needs arise. SHAWANDA Gil
[2020-11-16] MEDS: Famotidine 20 MG Tablet PO (11:46)
[2020-11-16] MEDS: Mag Hydrox/Al Hydrox/Simeth 30 ML UDC PO (11:46)
[2020-11-16] MEDS: Acetaminophen 325 MG Tablet 650 MG PO ×2 (11:46→22:12)
--- NOTE | 2020-11-16 12:20 | CASEMGMT ---
TERRENCE AMATO SUPERVISOR [employer] PROCESSING CM to room to meet with patient for initial transition planning/care coordination assessment. TERRENCE AMATO introduced self and role at [facility]. Pt voices understanding and consents to assessment at this time. Pt resting in bed in no distress at this time. Pt is A/O at this time and answers all questions appropriately. Care providers, pharmacy, and demographics verified/updated at this time. PCP: Dr Maurilio Alcala--pt plans to schedule an appt with him soon re: f/u on lipoma and adjusting anxiety medication. Specialists: Dr Sin--endocrinology. Pt has next appt scheduled for December 13. Preferred Pharmacy: [facility] Insurance: [employer] Prescription Benefit: yes LNOK: parents Living Arrangements: Patient lives with parents in a house. Patient is independent and able to ambulate stairs. Transportation: parents DME: Patient has glucometer, testing supplies, and insulin at home. D/C Plan: Patient to discharge home with family support and discharge plans in place. Sheila SOTELO RN, CM
[2020-11-16 12:21] LABS: Bedside Glucose 367 mg/dL (70-110)
[2020-11-16 13:35] LABS: Anion Gap 7 (5-15); BUN 7 mg/dL (7-18); BUN/Creat Ratio 10.2 RATIO (10-20); Calcium,Total 7.9 mg/dL (8.5-10.1); Chloride 105 mmol/L (98-107); Creatinine, Serum 0.68 mg/dL (0.55-1.02); EST Glomerular Filtration Rate 114 mL/min (>60); Est Glom Filt Rate - Afr Amer 138 mL/min (>60); Estimated Creatinine Clearance 114.33 ml/min; Glucose 333 mg/dL (74-106); Potassium 3.2 mmol/L (3.5-5.1); Sodium Level 136 mmol/L (136-145)
[2020-11-16] MEDS: Insulin Lispro 100 UNIT/ML INSULN.PEN 20 UNIT SC (16:53)
[2020-11-16] MEDS: Potassium Chloride Oral Tablet 20 MEQ 40 MEQ PO (16:54)
[2020-11-16 17:00] LABS: Bedside Glucose 238 mg/dL (70-110)
[2020-11-16 18:16] LABS: Magnesium 1.8 mg/dL (1.6-2.6)
[2020-11-16 18:31] LABS: Phosphorus 1.1 mg/dL (2.5-4.9)
[2020-11-16] MEDS: MELATONIN 3 MG TABLET PO (22:12)
[2020-11-16] MEDS: Ondansetron 4 MG/2 ML Vial IV (22:12)
[2020-11-16] MEDS: 0.9% Saline Lock 10 ML Syringe IV ×2 (22:12→23:11)
[2020-11-16 22:20] LABS: Bedside Glucose 106 mg/dL (70-110)
[2020-11-16] MEDS: proCHLORPERazine 10 MG/2 ML Vial 5 MG IV (23:11)
[2020-11-17 04:38] VITALS: BP 105/71; PULSE 92; RESP 18; TEMP 36.6; O2SAT 100
[2020-11-17] MEDS: 0.9% Normal Saline 1,000 ML 125 ML IV (06:24)
[2020-11-17] MEDS: Insulin Lispro 100 UNIT/ML INSULN.PEN 20 UNIT SC ×2 (06:25→12:08)
[2020-11-17] MEDS: Insulin Lispro 100 UNIT/ML INSULN.PEN SC ×2 (06:25→12:08)
[2020-11-17 06:30] LABS: Bedside Glucose 208 mg/dL (70-110)
[2020-11-17 07:34] VITALS: O2SAT 98
[2020-11-17 08:05] LABS: Anion Gap 4 (5-15); BUN 4 mg/dL (7-18); BUN/Creat Ratio 11.7 RATIO (10-20); Calcium,Total 7.5 mg/dL (8.5-10.1); Chloride 108 mmol/L (98-107); Creatinine, Serum 0.34 mg/dL (0.55-1.02); EST Glomerular Filtration Rate 253 mL/min (>60); Est Glom Filt Rate - Afr Amer 307 mL/min (>60); Estimated Creatinine Clearance 231.39 ml/min; Glucose 223 mg/dL (74-106); Magnesium 1.5 mg/dL (1.6-2.6); Potassium 3.6 mmol/L (3.5-5.1); Sodium Level 139 mmol/L (136-145)
[2020-11-17 08:55] VITALS: BP 112/80; PULSE 93; RESP 16; TEMP 36.7; O2SAT 100
[2020-11-17 11:36] LABS: Bedside Glucose 184 mg/dL (70-110)
--- NOTE | 2020-11-17 12:40 | PCM.DC ---
Discharge Instructions Diet Discharge Diet: 1800 Calorie Control Diet Activity Discharge Activity: Return to Normal Activity Dressing / Incision Call your doctor if you observe: Fever of 101 or Higher, Coldness, Increased Pain, Numbness or Tingling, Change in Color, Inability to urinate, Inability to have a bowel movement, Using more than one pad per hour, Shortness of breath, Dizziness, Fainting spells, Swelling in the ankles, Chest pain, Prolonged hiccupping, Increased palpitations (irregular heartbeat) and Calf discomfort Follow Up Care Test Results: Test results from this visit will be discussed in further detail at your follow-up appointment, if applicable. Discharge Plan Admission Admit Date/Time: 11/16/20 02:09 Primary Reason for Your Visit: dka Attending Provider: Quincy Jerome Primary Care Provider: Maurilio Alcala Instructions Patient Instructions: Diabetes: Understanding Carbohydrates Additional Instructions / Restrictions: Advised to check BMP, magnesium and phosphorus after 1 week with PCP. Discharge Orders/Prescriptions Prescriptions: New potassium, sodium phosphates [Phos-NaK] 280-160-250 mg Powder In Packet 1 packet PO TID Qty: 15 RF: 0 magnesium oxide [MgO] 400 mg (241.3 mg magnesium) tablet 400 mg PO BID Qty: 10 RF: 0 Continued cholecalciferol (vitamin D3) 1,250 mcg (50,000 unit) capsule 1,250 mcg PO QWEEK Qty: 4 RF: 5 (DME) Accu-Chek Guide test strips Strip See Rx Instructions .ROUTE .MEDSUPPLY Qty: 150 RF: 6 (DME) FreeStyle Randell 14 Day Sensor Kit See Rx Instructions .ROUTE .MEDSUPPLY Qty: 2 RF: 6 drospirenone-ethinyl estradiol 3-0.03 mg tablet 1 tab PO DAILY RF: 0 Lantus Solostar U-100 Insulin 100 unit/mL (3 mL) insulin pen 48 unit SUBCUT QHS RF: 0 insulin lispro 100 unit/mL insulin pen See Rx Instructions .ROUTE .COMPLEX RF: 0 Referrals / Follow Up: Maurilio Alcala MD [Primary Care Provider] - Within 1 Week Jacob Sin MD [STAFF PHYSICIAN] - Within 2 Weeks (Follow-up for DKA) Disposition Disposition (needs filled in before D/C Order can be placed): Home, self care
--- NOTE | 2020-11-17 12:48 | DS.PCM_ITS ---
Providers Date of Admission: 11/16/20 Primary Care Physician: Dr. Maurilio Alcala MD Reason For Visit: DKA Diagnosis Discharge Diagnosis (1) DKA, type 1: Status: Acute Qualifiers: Diabetes mellitus complication detail: without coma Qualified Code(s): E10.10 - Type 1 diabetes mellitus with ketoacidosis without coma Medications at Discharge Home Medications cholecalciferol (vitamin D3) 1,250 mcg (50,000 unit) capsule 1,250 mcg PO QWEEK #4 cap 01/18/20 Accu-Chek Guide test strips #150 ea NS 08/02/20 FreeStyle Randell 14 Day Sensor #2 ea NS 08/02/20 drospirenone-ethinyl estradiol 1 tab PO DAILY 11/16/20 insulin lispro See Rx Instructions .ROUTE .COMPLEX 11/16/20 Lantus Solostar U-100 Insulin 48 unit SUBCUT QHS #15 ml 11/17/20 magnesium oxide [MgO] 400 mg PO BID #10 tab 11/17/20 potassium, sodium phosphates [Phos-NaK] 1 packet PO TID #15 ea 11/17/20 Hospital Course Summary of Care Provided Hospital Course: This is a 19-year-old female with history of type 1 diabetes mellitus was admitted from [facility] for DKA. Patient was diagnosed diabetes mellitus at the age of 10. Patient has high anion gap metabolic acidosis with hypomagnesemia, hypokalemia and hypophosphatemia. Patient was admitted in ICU and treated as per DKA protocol with IV fluid resuscitation and insulin drip. As anion gap closed twice to, insulin drip was transitioned to intermittent short acting and long-acting insulin. Potassium, magnesium and phosphorus electrolytes were replaced. Patient has sufficient supply of insulin Lantus and NovoLog insulin at home. Prescription given for Neutra-Phos and magnesium and Lantus insulin refill. Discharge medication reconciliation done. Discharge follow-up instructions completed. Discharge process discussed with the patient and all questions were answered to patient's satisfaction. Total time spent, exact 35 minutes on discharge meds reconciliation, examination, coordination of care with nurses and ancillary staff, review of imaging and blood test and discussion with the patient on follow-up instructions Physical Exam Narrative General: Alert, Oriented x3, Cooperative HEENT: Atraumatic, PERRLA, EOMI, Normocephalic Oral: No Gingival or Mucosal Lesions/ Ulcerations Neck: Supple, No JVD, Negative Carotid Bruits Lungs: Air entry equal in bilateral lung bases. No crepitation/rhonchi Cardiovascular: Regular rate, Regular Rhythm, Normal S1, Normal S2, No murmurs Abdomen: Bowel Sounds Present, Soft, Non Tender, Non-Distended : No renal angle tenderness. No suprapubic tenderness. Extremities: No edema, Capillary Refill Less than 3 Seconds Skin: No rashes, No breakdown Musculoskeletal: No Tenderness to Palpation of Joints or Extremities Neurological: Cranial nerves II-XII grossly intact, Deep Tendon Reflexes 2+/4 and Symmetrical, Neuro grossly intact Psych/Mental Status: Normal Affect, Appropriate. ABG / Lab / Microbiology Data Result Diagrams: 11/16/20 06:15 11/17/20 06:17 Laboratory: Laboratory Results - last 24 hr 11/16/20 11/16/20 11/16/20 13:10 13:10 13:10 Sodium 136 Potassium 3.2 L Chloride 105 Carbon Dioxide 24.0 Anion Gap 7 BUN 7 Creatinine 0.68 Estim Creat Clear Calc 114.33 Est GFR (MDRD) Af Amer 138 Est GFR (MDRD) Non-Af 114 BUN/Creatinine Ratio 10.2 Glucose 333 H Calcium 7.9 L Phosphorus 1.1 L* Magnesium 1.8 POC Glucose 11/16/20 11/16/20 11/17/20 16:50 22:08 06:17 Sodium 139 Potassium 3.6 Chloride 108 H Carbon Dioxide 27.0 Anion Gap 4 L BUN 4 L Creatinine 0.34 L Estim Creat Clear Calc 231.39 Est GFR (MDRD) Af Amer 307 Est GFR (MDRD) Non-Af 253 BUN/Creatinine Ratio 11.7 Glucose 223 H Calcium 7.5 L Phosphorus Magnesium 1.5 L POC Glucose 238 H 106 11/17/20 11/17/20 11/17/20 06:17 06:21 11:29 Sodium Potassium Chloride Carbon Dioxide Anion Gap BUN Creatinine Estim Creat Clear Calc Est GFR (MDRD) Af Amer Est GFR (MDRD) Non-Af BUN/Creatinine Ratio Glucose Calcium Phosphorus 2.0 L Magnesium POC Glucose 208 H 184 H D/C Instructions Discharge Diet: 1800 Calorie Control Diet Discharge Activity: Return to Normal Activity Call your doctor if you observe: Fever of 101 or Higher, Coldness, Increased Pain, Numbness or Tingling, Change in Color, Inability to urinate, Inability to have a bowel movement, Using more than one pad per hour, Shortness of breath, Dizziness, Fainting spells, Swelling in the ankles, Chest pain, Prolonged hiccupping, Increased palpitations (irregular heartbeat) and Calf discomfort Meaningful Use Info Meaningful Use Diagnoses (Choose all that apply): None applicable Discharge Plan Admission Admit Date/Time: 11/16/20 02:09 Primary Reason for Your Visit: dka Attending Provider: Quincy Jerome Primary Care Provider: Maurilio Alcala Instructions Patient Instructions: Diabetes: Understanding Carbohydrates Additional Instructions / Restrictions: Advised to check BMP, magnesium and phosphorus after 1 week with PCP. Discharge Orders/Prescriptions Prescriptions: New potassium, sodium phosphates [Phos-NaK] 280-160-250 mg Powder In Packet 1 packet PO TID Qty: 15 RF: 0 magnesium oxide [MgO] 400 mg (241.3 mg magnesium) tablet 400 mg PO BID Qty: 10 RF: 0 Continued cholecalciferol (vitamin D3) 1,250 mcg (50,000 unit) capsule 1,250 mcg PO QWEEK Qty: 4 RF: 5 (DME) Accu-Chek Guide test strips Strip See Rx Instructions .ROUTE .MEDSUPPLY Qty: 150 RF: 6 (DME) FreeStyle Randell 14 Day Sensor Kit See Rx Instructions .ROUTE .MEDSUPPLY Qty: 2 RF: 6 drospirenone-ethinyl estradiol 3-0.03 mg tablet 1 tab PO DAILY RF: 0 insulin lispro 100 unit/mL insulin pen See Rx Instructions .ROUTE .COMPLEX RF: 0 Lantus Solostar U-100 Insulin 100 unit/mL (3 mL) insulin pen 48 unit SUBCUT QHS Qty: 15 RF: 0 Referrals / Follow Up: Maurilio Alcala MD [Primary Care Provider] - Within 1 Week Jacob Sin MD [STAFF PHYSICIAN] - Within 2 Weeks (Follow-up for DKA) Disposition Disposition (needs filled in before D/C Order can be placed): Home, self care Visit Charges Inpatient E&M: 13390 Disch Hosp
[2020-11-17] MEDS: 0.9% Saline Lock 10 ML Syringe IV (14:22)
[2020-11-17] MEDS: Potassium Chloride Oral Tablet 20 MEQ 40 MEQ PO (14:23)
[2020-11-17] MEDS: Na Biphos/Potassium Phosphate PACKET 1 PACKET PO (14:23)
[2020-11-17 14:43] VITALS: BP 105/74; PULSE 111; RESP 18; TEMP 36.7; O2SAT 100
[2020-11-17 16:25] LABS: Bedside Glucose 107 mg/dL (70-110)
== END 2020-11-17 17:36 | disposition home or self-care (01) ==
LOC: ICU 08:52 → MS3 17:56
PROVIDERS: Admitting Provider Family Medicine; PCP Family Medicine; Visit Provider Internal Medicine
DX: E10.10 Type 1 diabetes mellitus with ketoacidosis without coma (principal); Z79.4 Long term (current) use of insulin; F41.9 Anxiety disorder, unspecified; F32.9 Major depressive disorder, single episode, unspecified; Z79.899 Other long term (current) drug therapy; E87.6 Hypokalemia; E83.42 Hypomagnesemia; E83.39 Other disorders of phosphorus metabolism
CPT/HCPCS: 36415; 80048; 82962; 83036; 83735; 84100; 85025; 96361; 96374; 96375; 97802; 99218; J7030; J7040; A4216; G0378; G0379; J2405

== ENCOUNTER → 2020-12-03 09:05 | Outpatient (CLI) | payer BC, SELFPAY ==
[2020-12-03 08:21] VITALS: BMI 19.7
[2020-12-03 12:35] LABS: AST(SGOT) 14 U/L (15-37); Alanine Aminotransfer ALT/SGPT 14 U/L (13-56); Albumin, Serum 3.3 g/dL (3.2-5.0); Alkaline Phosphatase 68 U/L (45-117); Anion Gap 8 (5-15); BUN 15 mg/dL (7-18); BUN/Creat Ratio 32.3 RATIO (10-20); Calcium,Total 8.7 mg/dL (8.5-10.1); Chloride 101 mmol/L (98-107); Creatinine, Serum 0.46 mg/dL (0.55-1.02); EST Glomerular Filtration Rate 178 mL/min (>60); Est Glom Filt Rate - Afr Amer 216 mL/min (>60); Globulin 3.4 g/dL (2.2-4.2); Glucose 259 mg/dL (74-106); Potassium 4.1 mmol/L (3.5-5.1); Protein, Total 6.7 g/dL (6.4-8.2); Sodium Level 138 mmol/L (136-145)
[2020-12-03 13:36] LABS: Magnesium 1.7 mg/dL (1.6-2.6)
== END ==
PROVIDERS: Nurse Practitioner Family; PCP Family Medicine; Visit Provider Internal Medicine Endocrinology, Diabetes & Metabolism
DX: E10.10 Type 1 diabetes mellitus with ketoacidosis without coma (principal); E83.42 Hypomagnesemia
CPT/HCPCS: 36415; 80053; 83735

== ENCOUNTER 2021-01-11 14:03 | Emergency (ER) | payer BC, SELFPAY ==
[2020-12-03 08:21] VITALS: BMI 19.7
[2021-01-11 14:03] VITALS: BP 83/68; PULSE 148; RESP 16; TEMP 35.8; O2SAT 99; BMI 17.6
[2021-01-11 14:21] LABS: Bedside Glucose 273 mg/dL (70-110)
--- NOTE | 2021-01-11 14:24 | EKG12_ITS ---
Test Reason : GENERAL ILLNESS Blood Pressure : / mmHG Vent. Rate : 117 BPM Atrial Rate : 117 BPM P-R Int : 134 ms QRS Dur : 084 ms QT Int : 320 ms P-R-T Axes : 077 093 032 degrees QTc Int : 446 ms Sinus tachycardia Right atrial enlargement Rightward axis Borderline ECG Confirmed by MICHI MARTEL, ARANZA ([id number]), film or videotape editor MINE COBOS ([id number]) on 01/14/2021 9:52:09 AM Referred By: SHARI Confirmed By:YING BORDEN MD
--- NOTE | 2021-01-11 14:31 | EX.ED.DYSGE1 ---
HPI History of Present Illness Chief Complaint: General Illness Narrative Narrative: 20-year-old female presenting with concern for DKA. She states he started citalopram this week by her digital asset manager and has had a few doses which is made her sleep had not eat as much. She states she still taking her insulin normally. She has a type I diabetic. She states that her sugars have been anywhere from 200-500 at home. She denies fever or chills. She describes nausea without vomiting. She has no abdominal pain or chest pain. She states she does feel as if she is dehydrated and every time she stands up she hears whooshing in her ears. She feels like she is going to faint. She denies urinary complaints. She denies GI or complaints. She states that she called her digital asset manager and they told her to discontinue the Escitalopram for 1 week and then started again at half the dose. [facility] Medical History Anxiety and depression Anxiety and depression Diabetes type 1, controlled DKA, type 1 Headache Hyperfiltration focal segmental glomerulosclerosis Hypomagnesemia Proteinuria Home Medications Accu-Chek Guide test strips #150 ea NS 08/02/20 [Rx Last Taken Unknown] drospirenone-ethinyl estradiol 1 tab PO DAILY 11/16/20 [History Last Taken 01/08/21] FreeStyle Randell 14 Day Sensor #2 ea NS 12/03/20 [Rx Last Taken Unknown] FreeStyle Randell 2 Devol #1 ea NS 12/03/20 [Rx Last Taken Unknown] insulin glargine 100 unit/mL (3 mL) subcutaneous pen 48 unit SUBCUT QHS #15 ml 12/03/20 [Rx Last Taken 01/10/21] citalopram 10 mg PO DAILY 01/11/21 [History Last Taken 01/09/21] insulin lispro See Protocol SUBCUT ACHS 01/11/21 [History Last Taken 01/11/21] Allergy/AdvReac Type Severity Reaction Status Date / Time No Known Allergies Allergy Verified 01/11/21 14:07 Family History Father Diabetes Heart disease PAF Mother Migraines Surgical History H/O wisdom tooth extraction Social History household members: family Smoking Status: Never smoker second hand exposure: No alcohol intake: never substance use type: does not use ROS ROS ED Constitutional Constitutional ED: Reports other Details: Lightheaded with standing ; Denies chills or fever(s) Eyes Eyes: Denies blurry vision or diplopia ENT ENT ED: Denies rhinorrhea or sore throat Cardiovascular Cardiovascular: Reports palpitations and racing heartbeat; Denies chest pain Respiratory/Chest Respiratory/Chest: Denies cough or dyspnea Gastrointestinal Gastrointestinal: Reports nausea; Denies abdominal pain, constipation, diarrhea or vomiting Genitourinary Genitourinary ED: Denies dysuria or hematuria Musculoskeletal Musculoskeletal: Denies arthralgias or myalgias Integumentary Denies abscess or rash EXAM Physical Exam Const Vital Signs: 01/11/21 14:03 01/11/21 14:56 01/11/21 16:12 Temperature 96.5 F L Temperature Source Temporal Pulse Rate 148 H 119 H Respiratory Rate 16 13 Respiratory Effort Normal Non-Labored Respiratory Pattern Normal Blood Pressure 83/68 L 127/77 H Blood Pressure Mean 73 93 Pulse Ox 99 97 Oxygen Delivery Method Room Air Room Air Constitutional Narrative: Thin 20-year-old female tachycardic at 148 bpm and hypotensive 83/68 blood pressure. She is talking in full sentences and appears not to be in distress HEENT Reports dry mucous membranes tenderness; Negative for trauma Mouth ED: Yes dry mucous membranes Mouth: dry mucous membranes Eyes PERRL and EOMs intact bilaterally Resp normal respiratory effort and clear to auscultation bilaterally Cardio regular rate Rate: tachycardic GI normal to inspection, nondistended, normoactive bowel sounds Extremity normal to inspection General Extremety ED: Negative for edema or tenderness General Extremity: Negative for edema Neuro oriented x3 and CN's II-XII intact bilaterally Sensorium / Orientation: alert Psych mental status grossly normal Skin no rashes or lesions noted and no wounds MDM MDM MDM Narrative Medical decision making narrative: Patient presenting with concern that she is dehydrated and in DKA. Her blood pressure is low at 83/68 and her heart rate is 148. Patient ordered 2 L of IV fluids. EKG on my interpretation shows sinus tachycardia at a ventricular rate of 117 bpm. DE interval 134 ms. QRS duration 84 ms. Chest x-ray on my interpretation shows no acute cardiopulmonary process. CBC shows slight leukocytosis at 11.4. Hemoglobin hematocrit are stable. Renal function is normal. Potassium and magnesium are normal. Troponin negative. Glucose is 276 with an anion gap of 17. Patient states that she took 6 units of insulin lispro about an hour and a half prior to coming to the hospital. He states her blood sugar that time was around 320. Patient has small ketones in her blood as well as 150 urine ketones and has an anion gap of 17, however her glucose is not that elevated currently. I do believe the patient is dehydrated. Her blood pressure did come up to 127/77 and her heart rate did decrease to 119. Patient will be signed out to incoming ED physician, and I do believe the patient will likely go home after being rehydrated. Patient will follow up with her digital asset manager on an outpatient basis. Impression: 1. Hypotension resolved 2. Tachycardia 3. Hyperglycemia 4. Dehydration Lab Data Labs: Laboratory Results - last 24 hr 01/11/21 01/11/21 01/11/21 14:14 14:50 14:50 WBC 11.4 H RBC 5.59 H Hgb 16.3 H Hct 49.3 H MCV 88.2 MCH 29.2 MCHC 33.1 RDW Std Deviation 38.9 RDW Coeff of Santi 12.1 Plt Count 314 MPV 9.1 Immature Gran % (Auto) 0.400 Neut % (Auto) 78.9 H Lymph % (Auto) 14.4 L Hinds % (Auto) 5.9 Eos % (Auto) 0.0 Baso % (Auto) 0.4 Absolute Neuts (auto) 9.0 H Absolute Lymphs (auto) 1.64 Nucleated RBC % 0 Sodium 132 L Potassium 3.8 Chloride 102 Carbon Dioxide 13.0 L Anion Gap 17 H BUN 19 H Creatinine 0.89 Estim Creat Clear Calc 79.98 Est GFR (MDRD) Af Amer 102 Est GFR (MDRD) Non-Af 85 BUN/Creatinine Ratio 21.4 H Glucose 276 H Calcium 9.4 Magnesium 1.8 Total Bilirubin 0.80 AST 10 L ALT 13 Alkaline Phosphatase 86 Troponin I High Sens < 3.0 L Total Protein 8.0 Albumin 4.0 Globulin 4.0 Albumin/Globulin Ratio 1.0 Serum , Qual Urine Color Urine Clarity Urine pH Ur Specific [place] Urine Protein Urine Glucose (UA) Urine Ketones Urine Occult Blood Urine Nitrite Urine Bilirubin Urine Urobilinogen Ur Leukocyte Esterase Urine RBC Urine WBC Ur Squamous Epith Cells Urine Bacteria Urine Mucus Acetone Level POC Glucose 273 H 01/11/21 01/11/21 01/11/21 14:50 14:50 15:05 WBC RBC Hgb Hct MCV MCH MCHC RDW Std Deviation RDW Coeff of Santi Plt Count MPV Immature Gran % (Auto) Neut % (Auto) Lymph % (Auto) Hinds % (Auto) Eos % (Auto) Baso % (Auto) Absolute Neuts (auto) Absolute Lymphs (auto) Nucleated RBC % Sodium Potassium Chloride Carbon Dioxide Anion Gap BUN Creatinine Estim Creat Clear Calc Est GFR (MDRD) Af Amer Est GFR (MDRD) Non-Af BUN/Creatinine Ratio Glucose Calcium Magnesium Total Bilirubin AST ALT Alkaline Phosphatase Troponin I High Sens Total Protein Albumin Globulin Albumin/Globulin Ratio Serum , Qual NEGATIVE Urine Color YELLOW Urine Clarity Clear Urine pH 5.0 Ur Specific [place] 1.025 Urine Protein 30 H Urine Glucose (UA) 1000 H Urine Ketones 150 A* Urine Occult Blood 10 H Urine Nitrite Negative Urine Bilirubin Negative Urine Urobilinogen Normal Ur Leukocyte Esterase 25 H Urine RBC 0-5 SEEN Urine WBC 0-5 SEEN Ur Squamous Epith Cells 0-5 SEEN Urine Bacteria 0 SEEN Urine Mucus 0 SEEN Acetone Level SMALL H POC Glucose Radiography Diagnostic Testing: Radiology Impression Chest X-Ray 01/11/21 15:04 IMPRESSION: Hyperinflation. The lungs are clear. Electronically Signed: Sony Cowart MD at 15:19 EDT , Service support , Discharge Plan Triage Chief Complaint: General Illness ED Provider: Volodymyr Booker Dx/Rx/DC Orders Instructions: High Blood Sugar (Hyperglycemia), ED Dehydration (Adult), ED Low Blood Pressure, All Causes Prescriptions: No Action (DME) Accu-Chek Guide test strips Strip See Rx Instructions .ROUTE .MEDSUPPLY Qty: 150 RF: 6 (DME) FreeStyle Randell 14 Day Sensor Kit See Rx Instructions .ROUTE .MEDSUPPLY Qty: 2 RF: 6 (DME) FreeStyle Randell 2 Devol Misc See Rx Instructions .ROUTE .MEDSUPPLY Qty: 1 RF: 0 Lantus Solostar U-100 Insulin 100 unit/mL (3 mL) insulin pen 48 unit SUBCUT QHS Qty: 15 RF: 3 drospirenone-ethinyl estradiol 3-0.03 mg tablet 1 tab PO DAILY RF: 0 citalopram 10 mg tablet 10 mg PO DAILY RF: 0 insulin lispro 100 unit/mL insulin pen See Protocol unit subcut ACHS RF: 0 Primary Care Provider: Maurilio Alcala Referrals: Maurilio Alcala MD [Primary Care Provider] - Disposition Disposition: Home, Self Care
[2021-01-11 15:02] LABS: Absolute Lymphocyte Count 1.64 X10^3/uL (0.83-4.51); Basophil# 0.04 X10^3/uL; Basophil% 0.4 % (0-1); Hematocrit 49.3 % (37-47); Hemoglobin 16.3 g/dL (12.0-15.0); Lymphocyte # 1.64 X10^3/ul (0.83-4.51); Lymphocyte % 14.4 % (19-41); Mean Corp Hgb Conc 33.1 g/dL (32-36); Mean Corpuscular Hgb 29.2 pg (27.0-32.0); Mean Corpuscular Volume 88.2 fL (81-99); Mean Platelet Vol. 9.1 fl (6.2-12.0); Monocyte# 0.67 X10^3/uL; Monocyte% 5.9 % (0-10); NRBC Flagged by Analyzer 0 % (0-5); Neutrophil # 9.02 X10^3/uL (2.7-7.7); Neutrophil % 78.9 % (47-70); Platelet Count 314 K/mm3 (150-450); RBC Distribution Width CV 12.1 % (11.6-14.6); RBC Distribution Width SD 38.9 fl (35.1-43.9); Red Blood Count 5.59 M/mm3 (4.2-5.4); White Blood Count 11.4 K/mm3 (4.4-11.0)
[2021-01-11] MEDS: 0.9% Normal Saline 1,000 ML 999 ML IV ×2 (15:03→17:00)
--- NOTE | 2021-01-11 15:04 | RAD_ITS ---
STUDY: X-RAY CHEST REASON FOR EXAM: Female, 20 years old. Tachycardia TECHNIQUE: Single AP portable view of the chest. COMPARISON: [facility] prior study of 06/06/2019 FINDINGS: Hyperinflation. Scattered calcified granulomas. There is no demonstrated pleural abnormality. Normal size heart. Normal mediastinum and jessica. Normal visualized pulmonary arteries. Normal visualized aortic arch and descending thoracic aorta. Normal visualized thoracic spine. Normal visualized ribs, clavicles, and shoulders. There is no demonstrated abnormality of the visualized soft tissue structures of the upper abdomen. RAD/Chest 1 View (Portable) IMPRESSION: Hyperinflation. The lungs are clear. Electronically Signed: Sony Cowart MD at 15:19 EDT , Service support ,
[2021-01-11 15:15] LABS: AST(SGOT) 10 U/L (15-37); Alanine Aminotransfer ALT/SGPT 13 U/L (13-56); Alkaline Phosphatase 86 U/L (45-117); Anion Gap 17 (5-15); BUN 19 mg/dL (7-18); BUN/Creat Ratio 21.4 RATIO (10-20); Calcium,Total 9.4 mg/dL (8.5-10.1); Chloride 102 mmol/L (98-107); Creatinine, Serum 0.89 mg/dL (0.55-1.02); EST Glomerular Filtration Rate 85 mL/min (>60); Est Glom Filt Rate - Afr Amer 102 mL/min (>60); Estimated Creatinine Clearance 79.98 ml/min; Glucose 276 mg/dL (74-106); Magnesium 1.8 mg/dL (1.6-2.6); Potassium 3.8 mmol/L (3.5-5.1); Sodium Level 132 mmol/L (136-145); Troponin-I HS < 3.0 pg/mL (3.0-53.7)
[2021-01-11 15:17] LABS: Bacteria 0 SEEN /hpf (None Seen); Mucous, Urine 0 SEEN /hpf (<or=2+)
[2021-01-11 15:31] LABS: Internal QC Validated? YES +Cl - CLEAR BKGD; Pregnancy, Serum, hCG Quali. NEGATIVE Negative
[2021-01-11 15:39] LABS: Glucose, Dipstick 1000 mg/dl (Normal); Leukocyte Esterase-Dipstick 25 /ul (Negative); Nitrite-Dipstick Negative (Negative); Occult Blood-Urine 10 /ul (Negative); Protein-Dipstick 30 mg/dl (Negative); Specific Gravity, Urine 1.025 (1.002-1.030); Urine Bilirubin Dipstick Negative (Negative); Urine Urobilinogen Normal (Normal)
[2021-01-11 15:52] LABS: Ketone-Dipstick 150 mg/dl (Negative)
[2021-01-11 15:54] LABS: Color, Urine YELLOW (Yellow); Urine Clarity Clear (Clear)
[2021-01-11 16:12] VITALS: BP 127/77; PULSE 119; RESP 13; O2SAT 97
[2021-01-11 16:16] LABS: Red Blood Cells-Urine 0-5 SEEN /hpf (0-5); Squamous Epithelial Cells - UA 0-5 SEEN /hpf (5-10); White Blood Cells 0-5 SEEN /hpf (0-5)
[2021-01-11 18:14] VITALS: BP 126/77; PULSE 122; RESP 13; O2SAT 97
== END 2021-01-11 18:31 | disposition home or self-care (01) ==
PROVIDERS: Emergency Provider Student in an Organized Health Care Education/Training Program; PCP Family Medicine
DX: E10.65 Type 1 diabetes mellitus with hyperglycemia (principal); I95.9 Hypotension, unspecified; R00.0 Tachycardia, unspecified; E86.0 Dehydration; F32.9 Major depressive disorder, single episode, unspecified; F41.9 Anxiety disorder, unspecified; Z79.4 Long term (current) use of insulin; Z79.899 Other long term (current) drug therapy
CPT/HCPCS: 71045; 80053; 81001; 82009; 82962; 83735; 84484; 84703; 85025; 93005; 96360; 96361; 99284; J7030; A4216

== ENCOUNTER → 2022-09-25 | Outpatient (CLI) | payer BC, SELFPAY ==
[2022-09-25 17:19] LABS: ALB/GLOB Ratio 0.8 RATIO (0.9-2.4); AST(SGOT) 12 U/L (15-37); Alanine Aminotransfer ALT/SGPT 14 U/L (13-56); Albumin, Serum 3.2 g/dL (3.2-5.0); Alkaline Phosphatase 79 U/L (45-117); Anion Gap 6 (5-15); BUN 15 mg/dL (7-18); Calcium,Total 9.2 mg/dL (8.5-10.1); Chloride 102 mmol/L (98-107); Cholesterol 179 mg/dL (200); Creatinine, Serum 0.72 mg/dL (0.55-1.02); EST Glomerular Filtration Rate 107 mL/min (>60); Est Glom Filt Rate - Afr Amer 129 mL/min (>60); Globulin 3.8 g/dL (2.2-4.2); Glucose 187 mg/dL (74-106); High Density Lipoprotein 82 mg/dL; Potassium 3.9 mmol/L (3.5-5.1); Sodium Level 138 mmol/L (136-145); Thyroid Stim Hormone (TSH) 0.36 uIU/mL (0.358-3.74); Triglycerides 150 mg/dL; Very Low Density Lipoprotein 30 mg/dL (5-40)
[2022-09-25 18:56] LABS: Vitamin D,25 Hydroxy 37.6 ng/mL
== END | disposition home or self-care (01) ==
LOC: BIMLAB 15:33
PROVIDERS: PCP Family Medicine; Visit Provider Internal Medicine Endocrinology, Diabetes & Metabolism
DX: E10.9 Type 1 diabetes mellitus without complications (principal); R80.9 Proteinuria, unspecified; Z96.41 Presence of insulin pump (external) (internal); Z46.81 Encounter for fitting and adjustment of insulin pump; E55.9 Vitamin D deficiency, unspecified
CPT/HCPCS: 36415; 80053; 80061; 82306; 84443

== ENCOUNTER → 2022-10-06 | Outpatient (CLI) | payer BC, SELFPAY ==
[2022-10-06 17:10] LABS: Microalbumin,Random Urine 12.4 mg/L (NO RANGE EST.); Microalbumin:Creatinine Ratio 10.7 mg/g CRE (<30 mg/g CRE)
== END | disposition home or self-care (01) ==
LOC: LABSPEC 14:29
PROVIDERS: PCP Family Medicine; Referring Provider Internal Medicine Endocrinology, Diabetes & Metabolism; Visit Provider Internal Medicine Endocrinology, Diabetes & Metabolism
DX: E10.9 Type 1 diabetes mellitus without complications (principal); R80.9 Proteinuria, unspecified; Z96.41 Presence of insulin pump (external) (internal); Z46.81 Encounter for fitting and adjustment of insulin pump
CPT/HCPCS: 82043; 82570

== ENCOUNTER → 2025-03-25 | Outpatient (CLI) | payer BC, SELFPAY ==
--- OUTSIDE RECORDS SUMMARY | 2025-03-23 20:21 | XMS RPT_ITS ---
Author Name Auto Generated Organization OHIP Care Team Providers Care Innersole Fitter Name Role Phone LES MORALES T Attending Unavailable FURNESS, LES T Primary Care Unavailable FURNESS, LES T Primary Care Unavailable MYNOR MCGINNIS Attending Unavailable WEMICHELTWALKER S Attending Unavailable FURNESS, LES T Referring Unavailable FURNESS, LES T Primary Care Unavailable WALKER GLORIA S Referring Unavailable FURNESS, LES T Primary Care Unavailable SHARLENETWALKER S Referring Unavailable FURNESS, LES T Primary Care Unavailable ELIAN SMALLWOOD Referring Unavailabl e FURNESS, LES T Primary Care Unavailable PROBLEMS DATE TYPE CONDITION / CODE ATTENDING STATUS [facility] 03/01/2025 Admitting Diagnosis Chronic migraine without aura, intractable, without status migrainosus / G43.719(ICD-10) [facility] 03/01/2025 Admitting Diagnosis Anxiety disorder, unspecified / F41.9(ICD-10) [facility] 03/01/2025 Admitting Diagnosis Depression, unspecified / F32.A(ICD-10) [facility] 03/01/2025 Admitting Diagnosis Obstructive sleep apnea (adult) (pediatric) / G47.33(ICD-10) [facility] 03/01/2025 Admitting Diagnosis Snoring / R06.83(ICD-10) [facility] 03/01/2025 Admitting Diagnosis Other hypersomnia / G47.19(ICD-10) [facility] 03/01/2025 Admitting Diagnosis Sleep disorder, unspecified / G47.9(ICD-10) [facility] 11/26/2023 Admitting Diagnosis Migraine without aura, not intractable, without status migrainosus / G43.009(ICD-10) LES MORALES [facility] 02/04/2023 Admitting Diagnosis Type 1 diabetes mellitus without complications / E10.9(ICD-10) LES MORALES [facility] 10/11/2024 Admitting Diagnosis Acute cystitis with hematuria / N30.01(ICD-10) MYNOR MCGINNIS [facility] 10/11/2024 Admitting Diagnosis Dysuria / R30.0(ICD-10) MYNOR MCGINNIS [facility] 10/11/2024 Admitting Diagnosis Unspecified abdominal pain / R10.9(ICD-10) MYNOR MCGINNIS [facility] 08/31/2024 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 ,G43.719 Chronic migraine without aura, intractable, without status migrainosus COMPARISON: None. ACCESSION NUMBER(S): [id number] ORDERING CLINICIAN: WALKER GLORIA TECHNIQUE: Axial T2, FLAIR, DWI, gradient echo T2 and sagittal and coronal T1 weighted images of brain were acquired. Post contrast T1 weighted images were acquired after administration of 17 ML Dotarem gadolinium based intravenous contrast. FINDINGS: CSF Spaces: The ventricles, sulci and basal cisterns are within normal limits. Parenchyma: There is no diffusion restriction abnormality to suggest acute infarct. There is no focal parenchymal signal abnormality. There is no mass effect or midline shift. The sella turcica is unremarkable. There is no evidence of subarachnoid dilatation. No tonsillar ectopia. Paranasal Sinuses and Mastoids: Visualized paranasal sinuses and mastoid air cells are unremarkable. IMPRESSION: Unremarkable MRI of the brain MACRO: None Signed by: Geovanna Brooks 03/16/2025 10:54 AM Dictation workstation: [id number] CULTURE, URINE, ROUTINE Collected: 09/27 4:33 PM Status: F Source: [employer] TYPE CODE TESTS RESULT OUT OF RANGE REFERENCE UNITS LAB [id number] CULTURE, URINE, ROUTINE SEE NOTE Abnormal Result Comment: CULTURE, URINE, ROUTINE Micro Number: [id number] Test Status: Final Specimen Source: Urine Specimen Quality: Adequate Result: Greater than 100,000 CFU/mL of Staphylococcus saprophyticus The Clinical Laboratory Standards [place] (CLSI) does not advise routine susceptibility testing of urine isolates of S. saprophyticus because infections respond to urinary concentrations of agents commonly used to treat acute, uncomplicated UTI such as nitrofurantoin, trimethoprim-sulfamethoxazole or a fluoroquinolone. Performed By: #### 395 #### [employer] [place] [address] [address] [place] [address] Foot Caster: Ted Thompson MD ALBUMIN/CREATININE RATIO, URINE Collect ed: 08/31/2024 11:33 AM Status: F Source: [facility] Order Comment: Specimen Type : URINE SPECIMEN Ordering Facility: [facility] Address: [facility] [facility] [address], [place] [address] TYPE CODE TESTS RESULT OUT OF RANGE REFERENCE UNITS LAB 2161-8(LOINC) Creat Ur-mCnc 133.2 42.2-237.9 m g/dL LAB 29895-9(LOINC ) Microalbumin ?Tm Ur-mRate <12.0 mg/L LAB 9318-7(LOINC) Albumin/Creat Ur <9 <30 mg/g Result Comment: Adult Male a nd Female Nephrotic Criteria: <30 mg/g is considered normal to mildly increased 30-300 mg/g is considered moderately increased >300 mg/g is considered severely increased KDIGO. (2013). KDIGO 2012 Clinical Practice Guideline for the Evaluation and Management of Chronic Kidney Disease. Official Journal of the International Society of Nephrology, 3(1), 1-150. Performed By: #### UACR #### [facility] CLIA [id number] [address] STATES OF [facility] COMP METAB 2000 PNL SERPL Collected: 11:32 AM Status: F Source: [facility] Order Comment: Specimen Type : BLOOD SPECIMEN Ordering Facility: [facility] Address: [address], [place] [address] TYPE CODE TESTS RESULT OUT OF RANGE REFERENCE UNITS LAB 2885-2(LOINC) Prot SerPl-mCnc 7.1 6.3-8.0 g/dL LAB 1751-7(LOINC) Albumin SerPl-mCnc 4.1 3.9-4.9 g/dL LAB 02498-8(LOINC) Calcium SerPl-mCnc 9.6 8.5-10.2 mg/dL LAB 1975-2(LOINC) Bilirub SerPl-mCnc 0.3 0.2-1.3 mg/dL LAB 6768-6(LOINC) ALP SerPl-cCnc 87 34-123 U/L LAB 38609-0(LOINC) AST SerPl w P-5'-P-cCnc 12 Low 13-35 U/L LAB 1743-4(LOINC) ALT SerPl w P-5'-P-cCnc 7 7-38 U/L LAB 2345-7(LOINC) Glucose SerPl-mCnc 232 High 74-99 mg/dL Result Comment: The [place] Diabetes Association (ADA) provides guidance for cutoff values for fasting glucose and random glucose. The ADA defines fasting as no caloric intake for at least 8 hours. Fasting plasma glucose results between 100 to 125 mg/dL indicate increased risk for diabetes (prediabetes). Fasting plasma glucose results greater than or equal to 126 mg/dL meet the criteria for diagnosis of diabetes. In the absence of unequivocal hyperglycemia, results should be confirmed by repeat testing. In a patient with classic symptoms of hyperglycemia or hyperglycemic crisis, random plasma glucose results greater than or equal to 200 mg/dL meet the criteria for diagnosis of diabetes. Reference: Standards of Medical Care in Diabetes 2016, [place] Diabetes Association. Diabetes Care. 2016.39(Suppl 1). LAB 3094-0(LOINC) BUN SerPl-mCnc 11 7-21 mg/ dL LAB 2160-0(LOINC) Creat SerPl-mCnc 0.45 Low 0.58-0.96 mg/dL LAB 2951-2(LOINC) Sodium SerPl-sCnc 139 136-144 mmol/L LAB 2823-3(LOINC) Potassium SerPl-sCnc 4.0 3.7-5.1 mmol/L LAB 2075-0(LOINC) Chloride SerPl-sCnc 100 98-107 mmol/L LAB 2028-9(LOINC) CO2 SerPl-sCnc 27 22-30 mmo l/L LAB 10855-4(LOINC) Anion Gap SerPl-sCnc 12 8-15 mmol/L LAB 99439-3(LOINC) Creatinine + eGFR Pnl SerPlBld 137 >=60 mL/min/1. 73m??? Result Comment: Estimated Gl omerular Filtration Rate (eGFR) is calculated using the 2020 CKD-EPI creatinine equation. This equation utilizes serum creatinine, sex, and age as parameters. The creatinine assay has traceable calibration to isotope dilution-mass spectrometry. Refer to KDIGO guidelines for clinical interpretation. In patients with unstable renal function, e.g. those with acute kidney injury, the eGFR may not accurately reflect actual GFR. Performed By: #### 3016-3, 2 4323-8, 99222-1 #### [facility] CLIA [id number] [address] [place] [address] [place] LIPID 1996 PNL SERPL Collected: 025 11:32 AM Status: F Source: [facility] Order Comment: Specimen Type : BLOOD SPECIMEN Ordering Facility: [facility] Address: [address] [place] [address], [place] [address] TYPE CODE TESTS RESULT OUT OF RANGE REFERENCE UNITS LAB 2093-3(LOINC) Cholest SerPl-mCnc 165 <200 mg/dL Result Comment: <200 mg/dL, Desirable 200-239 mg/dL, Borderline high >239 mg/dL, High LAB 2571-8(LOINC) Trigl SerPl-mCnc 55 <150 mg/dL Result Comment: <150 mg/dL, Normal 150-199 mg/dL, Borderline high 200-499 mg/dL, High >499 mg/dL, Very high LAB 2085-9(LOINC) HDLc SerPl-mCnc 74 >39 mg/dL Result Comment: 40-59 mg/dL, Acceptable >59 mg/dL, High: Negative risk factor for coronary heart disease <40 mg/dL, Low: Positive risk factor for coronary heart disease LAB 12931-3(LOINC) NonHDLc SerPl-mCnc 91 <130 mg/dL Result Comment: <130 mg/dL, Optimal 130-159 mg/dL, Near optimal/above optimal 160-189 mg/dL, Borderline high 190-219 mg/dL, High >219 mg/dL, Very high Secondary prevention optimal non HDL Cholesterol levels are recommended to be <100 mg/dL LAB FT FASTING TIME 12 hrs LAB 64729-6(LOINC) VLDLc SerPl Calc-mCnc 11 <30 mg/dL LAB 9830-1(LOINC) Cholest/HDLc SerPl 2.23 <5.10 LAB 2089-1(LOINC) LDLc SerPl-mCnc 80 <100 mg/dL Result Comment: <100 mg/dL, Optimal 100-129 mg/dL, Near optimal/above optimal 130-159 mg/dL, Borderline high 160-189 mg/dL, High >189 mg/dL, Very high Secondary prevention optimal LDL Cholesterol levels are recommended to be < 70 mg/dL LAB 89882-8(LOINC) LDLc/HDLc SerPl 1.08 <2.54 Result Comment: Reference: 1. National Cholesterol Education Program ATP III Guideline At-A-Glance Quick Desk Reference: National Heart, Lung, and Blood [place]. National Institutes of Health. 2001: NIH Publication No. 01-3305. 2. An International Atherosclerosis Society position paper: global recommendations for the management of dyslipidemia: executive summary, Atherosclerosis. 2014: 232(2):410-413. Performed By: #### 3016-3, 2 4323-8, 93415-4 #### [facility] CLIA [id number] [address] [place] [address] [facility] TSH SERPL-ACNC Collected: 5 11:32 AM Status: F Source: [facility] Order Comment: Specimen Type : BLOOD SPECIMEN Ordering Facility: [facility] Address: [address] [place] [address] TYPE CODE TESTS RESULT OUT OF RANGE REFERENCE UNITS LAB 3016-3(LOINC) TSH SerPl-aCnc 0.553 0.270-4.200 mIU/L Result Comment: If the patie nt is , TSH reference range varies by gestational period: First Trimester (weeks 9-12): 0.180-2.990 mIU/L Second Trimester: 0.110-3.980 mIU/L Third Trimester: 0.480-4.710 mIU/L Romain Bailey et al. A Practical Approach for the Verifications and Determination of Site- and Trimester-Specific Reference Intervals for Thyroid Function tests in . Thyroid, 2019:29:3:412-420. Dipesh E, et al. 2017 Guidelines of the [place] Thyroid Association for the Diagnosis and Management of Thyroid Disease during and the . Thyroid, 2017:27:3:315-389. Performed By: #### 3016-3, 2 4323-8, 98799-7 #### [facility] CLIA [id number] [address] [place] [address] [facility] 25(OH)D3 SERPL-MCNC Collected: 09/01/19 11:32 AM Status: F Source: [facility] Order Comment: Specimen Type : BLOOD SPECIMEN Ordering Facility: [facility] Address: [address] [place] [address] TYPE CODE TESTS RESULT OUT OF RANGE REFERENCE UNITS LAB 1988-08(LOINC) 25(OH)D3 SerPl-mCnc 18.5 Low >=30.0 ng/mL Result Comment: Classificati on of 25 [place] Vitamin D status: Deficiency: <= 20.0 ng/ml. Insufficiency: 21.0-29.0 ng/ml. Sufficiency: >= 30.0 ng/ml. Performed By: #### 1988-08 ## ## [facility] CLIA [id number] [address] [place] [address] [place] ALLERGIES DATE TYPE / CODE NAME / CODE REACTION SEVERITY SOURCE SYSTEMIC/[id number]( SNOMED CT) NO KNOWN ALLERGIES [facility] Drug Class/[id number](SNO MED CT) NO KNOWN ALLERGIES [facility] ENCOUNTERS ADMIT/DISCHARGE ACCOUNT NUMBER ADMITTING ENCOUNTER CLASS LOCATION SOURCE 03/23/2025/ 5 [id number] Ambulatory Building:[facility] [id number] [facility] 03/15/2025/ 5 [id number] Ambulatory Building:[facility] 03/01/2025/ 5 [id number] Ambulatory Building:[facility] [id number] [facility] 01/05/2025/ 5 [id number] Ambulatory Building:[facility] [id number] [facility] 10/11/2024/ 5 [id number] Ambulatory Building:[facility] 08/31/2024/ 5 [id number] [facility] PAYERS ENCOUNTER GUARANTOR PAYER SUBSCRIBER SOURCE 03/23/2025 KIRTI FUENTESB: [id number] [place], [place] [address]Rai: () Primary Insurance:ANTHEMPolicy Number: [id number] e Date:2024-12-06 KIRTI A PHILLIPSDOB: [id number] [place], [place] [address]Ips: () [facility] 03/15/2025 KIRTI A PHILLIPSDOB: [place], [place] [address]Ijy: () Primary Insurance:ANTHEMPolicy Number: [id number] e Date:2024-12-06 KIRTI A PHILLIPSDOB: [id number] [place], [place] [address]Pwa: () [facility] 03/01/2025 KIRTI A PHILLIPSDOB: [id number] [place] [address]Sus: () Primary Insurance:ANTHEMPolicy Number: [id number] e Date:2024-12-06 KIRTI A PHILLIPSDOB: [id number] [id number] [place] [address]Nts: () [facility] 01/05/2025 KIRTI A PHILLIPSDOB: [id number] [address] [place] [place] [address]Jpk: () Primary Insurance:[facility] RESOURCESPoly Number: [id number] Date:1899-06-291899-06-30 JEFFERY Ayala PHILLIPSDOB: [id number] [address] [place] [place] [address]Hqv: () [facility] 01/05/2025 Secondary Insurance:ANTHEMPolicy Number: [id number] e Date:2024-12-06 KIRTI A PHILLIPSDOB: [id number] [address] [place] [place] [address]Quv: () [facility] 10/11/2024 KIRTI A PHILLIPSDOB: [id number] [address] [place] [place] [address]Aws: (HP) [facility] Number: [id number] Date:2022-06-29 JEFFERY FUENTESB: [id number] [address] [place] [place] [phone]: (HP) [facility] 08/31/2024 Primary Insuranc e:[facility] CHOICE PLUSPolicy Number: [id number] Date:8075-22-15Ygol Name:John BECKER IIDOB: [id number] [address] [place] [address] [facility]
--- NOTE | 2025-03-25 08:11 | US_ITS ---
PROCEDURE: THYROID 03/25/2025 REASON FOR EXAM: GOITER TECHNIQUE: Procedure Code: USTHY Modality: US Procedure: THYROID COMPARISON: None FINDINGS: Right thyroid lobe size: 4.9 x 1.6 x 1.2 cm Left thyroid lobe size: 4.7 x 1.2 x 0.8 cm Isthmus: 0.2 cm Background parenchymal echotexture is homogeneous. Nodules: 1. Lobe: Left, Location: Upper, Size: 0.7 x 0.5 x 0.3 cm, Stability: Composition: Solid or almost completely solid (+2) Echogenicity: Hypoechoic (+2) Margin: Smooth (+0) Shape: Wider than tall (+0) Echogenic Foci: None (+0) TI-RADS: <2 = TR 1 * 2 = TR 2 * 3 = TR 3 * 4-6 = TR 4 * >6 = TR 5 . Lobe: , Location: , Size: cm, Stability: Composition: Echogenicity: Margin: Shape: Echogenic Foci: TI-RADS: <2 = TR 1 * 2 = TR 2 * 3 = TR 3 * 4-6 = TR 4 * >6 = TR 5 US/Thyroid IMPRESSION: Normal-sized homogeneous thyroid gland with a subcentimeter hypoechoic nodule i n the left thyroid lobe. It scores TR 3 and can be followed sonographically due to its size. RECOMMENDATION: Based on most suspicious nodule. Nodule size = largest diameter Only evaluate nodule if =>5 mm. Growth > 20% in 2 dimensions = worsening. Follow up to 4 nodules. Recommend biopsy for no more than 2 nodules. Reading Location: [id number]
== END | disposition home or self-care (01) ==
LOC: US 08:09
PROVIDERS: PCP Family Medicine; Referring Provider Nurse Practitioner Family; Visit Provider Nurse Practitioner Family
DX: E04.9 Nontoxic goiter, unspecified (principal)
CPT/HCPCS: 76536